=== PATIENT | female | born 1945 | race Caucasian/White ===

== ENCOUNTER 2018-08-25 19:50 | Inpatient (IN) ==
[2018-08-25 20:38] LABS: Basophils % 0.5 %; Eosinophils # 0.2 K/mcL (0.0-0.6); Eosinophils % 3.5 %; Hematocrit 40.3 % (35.3-44.9); Hemoglobin 12.8 g/dL (11.5-15.4); Immature Granulocytes % 0.3 % (0-4); Lymphocytes # 0.8 K/mcL (0.6-4.6); Lymphocytes % 14.6 %; Mean Corpuscular HGB Conc 31.8 g/dL (31.6-35.5); Mean Corpuscular Hemoglobin 30.1 pg (28.0-33.3); Mean Corpuscular Volume 94.8 fL (83.0-100.0); Mean Platelet Volume 10.1 fL (9.4-12.4); Monocytes # 0.5 K/mcL (0.0-1.3); Monocytes % 8.2 %; Neutrophils # 4.2 K/mcL (1.6-8.9); Platelet Count 195 K/mcL (140-400); Red Blood Count 4.25 M/mcL (3.82-4.97); Red Cell Distribution Width 13.9 % (11.5-14.5); Segmented Neutrophils % 72.9 %; White Blood Count 5.8 K/mcL (4.3-11.1)
--- NOTE | 2018-08-25 20:46 | Emergency Department Note ---
Disposition Clinical Impression: Orthopnea Acute CHF Qualifiers: Heart failure type: unspecified Qualified Code(s): I50.9 - Heart failure, unspecified Dyspnea Qualifiers: Dyspnea type: unspecified Qualified Code(s): R06.00 - Dyspnea, unspecified Disposition: Admitted As Inpatient Condition: Fair Time of Disposition: 22:54 General Adult HPI - General Chief complaint: ED Shortness of Breath/Dyspnea Stated complaint: Luiz Time Seen by Provider: 08/25/18 20:27 Source: patient, family Limitations: no limitations Nursing Notes Reviewed: Yes Vital Signs Reviewed: Yes - History of Present Illness HPI Narrative: Patient is a 72-year-old female with past medical history including breast cancer, history of DVT, hypertension, hyperlipidemia present with chief c omplaint of shortness of breath worsening in the past 3 days. The patient states she has been having intermittent shortness of breath for the past 3 months. She has had frequent diagnoses of bronchitis. Most recently, she was diagnosed with bronchitis a week ago and started on Levaquin for 10 days. She was also started on a steroid taper. She is still taking both medications at this time. She states shortness of breath is progressively worsening in the past 3 days. Daughter notes that she has a difficult time ambulating from the bed to the door without getting short of breath. She has to stop to get her breath. She also complains of difficulty breathing when laying flat. She denies a diagnosis of congestive heart failure however takes Lasix intermittently for bilateral lower extremity swelling. She states her legs have been swollen significantly for the past 2 days. She took 80 mg of by mouth Lasix yesterday. She denies new cough, chills, fevers, chest pain, abdominal pain, nausea or vomiting, diarrhea, dysuria. Pain Scale: 0 - Related Data Home Medications Medication Instructions Recorded Confirmed Amitriptyline [Elavil] 25 mg PO DAILY 01/23/15 11/13/16 Cholecalciferol (Vitamin D3) 1,000 unit PO DAILY 01/23/15 11/13/16 [Vitamin D] Folic Acid 1 mg PO DAILY 01/23/15 11/13/16 Hydrochlorothiazide 25 mg PO DAILY 01/23/15 11/13/16 Levothyroxine [Synthroid] 112 mcg PO 0630 01/23/15 11/13/16 Lisinopril [Zestril] 40 mg PO DAILY 01/23/15 11/13/16 Metoprolol [Lopressor] 50 mg PO BID 01/23/15 11/13/16 Oxycodone HCl/Acetaminophen 1 tab PO Q6H PRN 01/23/15 11/13/16 [Percocet 10-325 mg Tablet] Pravastatin Sodium [Pravachol] 20 mg PO DAILY 01/23/15 11/13/16 TraZODone 50 mg PO HS 01/23/15 11/13/16 Previous Rx's Medication Instructions Recorded Anastrozole [Arimidex] 1 mg PO DAILY #30 tablet 01/23/15 Omeprazole [PriLOSEC] 20 mg PO DAILY #30 cap 08/20/16 Allergies Allergy/AdvReac Type Severity Reaction Status Date / Time venlafaxine [From Effexor] Allergy Flushing Verified 11/13/16 11:46 adhesive tape AdvReac Rash Verified 11/13/16 11:46 All systems ED: reviewed and negative except as stated. Review of Systems: As Per HPI Constitutional: Denies: fever, chills Cardiovascular: Denies: chest pain, palpitations Respiratory: Reports: cough, dyspnea Gastrointestinal: Denies: abdominal pain, nausea, vomiting, diarrhea Genitourinary: Denies: dysuria Musculoskeletal: Denies: back pain, neck pain Neurological: Denies: headache, weakness Past Medical History - Past Medical History Attestation: Yes The following information was validated with the patient. Source: patient Medical history: Reports: hyperlipidemia, hypertension - Social History Smoking Status: Current every day smoker Smokeless Tobacco Status: No Alcohol use: Reports: occasionally Drug use: Reports: none Physical Exam - General Limitations: no limitations General appearance: alert - Head Head exam: atraumatic, normocephalic, normal inspection - Eye Eye exam: Present: normal appearance, EOMI - ENT ENT exam: normal exam, mucous membranes moist - Neck Neck exam: Present: normal inspection, trachea midline - Chest Chest inspection: Present: normal inspection, symmetric chest wall rise - Respiratory Respiratory exam: Present: other (Diminished breath sounds bilaterally without wheezing or crackles.) - Cardiovascular Cardiovascular exam: Present: regular rate, normal rhythm - Abdominal Exam Abdominal exam: Present: soft, Non-Tender. Absent: distention, guarding, rebound, rigidity - Extremities Exam Extremities exam: Present: normal capillary refill, other (2+ pitting edema bilateral lower extremities. RUE swelling) - Neurological Exam Neurological exam: Present: alert, oriented X3 - Psychiatric Psychiatric exam: Present: normal affect, normal mood - Skin Skin exam: Present: warm, dry. Absent: diaphoresis, pallor Course Vital Signs Temperature 97.5 F L 08/25/18 19:52 Pulse Rate 73 08/25/18 19:52 Respiratory Rate 18 08/25/18 19:52 Blood Pressure 134/80 08/25/18 19:52 O2 Sat by Pulse Oximetry 98 08/25/18 19:52 Temperature 97.5 F L 08/25/18 19:52 Pulse Rate 73 08/25/18 19:52 Respiratory Rate 18 08/25/18 19:52 Blood Pressure 134/80 08/25/18 19:52 O2 Sat by Pulse Oximetry 98 08/25/18 19:52 Oxygen Delivery Oxygen Delivery Room Air Medical Decision Making - MDM Narrative Medical decision making narrative: Patient has signs and symptoms concerning for congestive heart failure. She clinically appears fluid overloaded. She took 80 mg of IV Lasix yesterday. Patient denies a diagnosis of congestive heart failure. We will obtain CBC, B MP, troponin, BNP. EKG does show a new left bundle branch block which is new compared to old EKG in 2016. She had an echocardiogram in 2016 that showed mild left ventricular diastolic dysfunction and LVEF of 60%. 21:45 Chest x-ray shows improving pneumonia. She has a small pleural effusion and cardiomegaly. Troponin is normal. BNP is elevated 977 and none to compare to. We will give 40 mg IV Lasix. We will admit the patient for new EKG changes, acute congestive heart failure. Hospitalist paged. 22:[address] Laura who accepts patient. Added on a Doppler ultrasound of the right upper extremity as she has swelling and lymphedema from her prior breast cancer and surgery. These results are pending. - Medical Records Medical records reviewed: Yes I reviewed the patient's medical records. - Lab Data Lab results reviewed: Yes I reviewed the patient's lab results. Result diagrams: 08/25/18 20:26 08/25/18 20:26 Lab Results 08/25/18 08/25/18 08/25/18 Range/Units 20:26 20:26 20:26 WBC 5.8 (4.3-11.1) K/mcL RBC 4.25 (3.82-4.97) M/mcL Hgb 12.8 (11.5-15.4) g/dL Hct 40.3 (35.3-44.9) % MCV 94.8 (83.0-100.0) fL MCH 30.1 (28.0-33.3) pg MCHC 31.8 (31.6-35.5) g/dL RDW 13.9 (11.5-14.5) % Plt Count 195 (140-400) K/mcL MPV 10.1 (9.4-12.4) fL Immature Gran % 0.3 (0-4) % Seg Neutrophils % 72.9 % Lymphocytes % 14.6 % Monocytes % 8.2 % Eosinophils % 3.5 % Basophils % 0.5 % Neutrophils # 4.2 (1.6-8.9) K/mcL Lymphocytes # 0.8 (0.6-4.6) K/mcL Monocytes # 0.5 (0.0-1.3) K/mcL Eosinophils # 0.2 (0.0-0.6) K/mcL Basophils # 0.0 (0.0-0.2) K/mcL Sodium 138 (136-145) mEq/L Potassium 4.1 (3.5-5.1) mEq/L Chloride 99 (98-107) mEq/L Carbon Dioxide 30 H (23-29) mEq/L BUN 15 (8-23) mg/dL Creatinine 0.74 (0.60-1.20) mg/dL Est GFR ( Amer) > 60 (> 60) Est GFR (Non-Af Amer) > 60 (> 60) BUN/Creatinine Ratio 20 (6-26) Glucose 85 (70-105) mg/dL Calculated Osmolality 286 (280-300) Lactic Acid 1.0 (0.5-2.2) mmol/L Calcium 9.0 (8.6-10.3) mg/dL Troponin I < 0.03 (< 0.04) ng/mL B-Natriuretic Peptide (Less than 100) pg/mL 08/25/18 Range/Units 20:26 WBC (4.3-11.1) K/mcL RBC (3.82-4.97) M/mcL Hgb (11.5-15.4) g/dL Hct (35.3-44.9) % MCV (83.0-100.0) fL MCH (28.0-33.3) pg MCHC (31.6-35.5) g/dL RDW (11.5-14.5) % Plt Count (140-400) K/mcL MPV (9.4-12.4) fL Immature Gran % (0-4) % Seg Neutrophils % % Lymphocytes % % Monocytes % % Eosinophils % % Basophils % % Neutrophils # (1.6-8.9) K/mcL Lymphocytes # (0.6-4.6) K/mcL Monocytes # (0.0-1.3) K/mcL Eosinophils # (0.0-0.6) K/mcL Basophils # (0.0-0.2) K/mcL Sodium (136-145) mEq/L Potassium (3.5-5.1) mEq/L Chloride (98-107) mEq/L Carbon Dioxide (23-29) mEq/L BUN (8-23) mg/dL Creatinine (0.60-1.20) mg/dL Est GFR ( Amer) (> 60) Est GFR (Non-Af Amer) (> 60) BUN/Creatinine Ratio (6-26) Glucose (70-105) mg/dL Calculated Osmolality (280-300) Lactic Acid (0.5-2.2) mmol/L Calcium (8.6-10.3) mg/dL Troponin I (< 0.04) ng/mL B-Natriuretic Peptide 977 H (Less than 100) pg/mL - Radiology Data Chest X-Ray 08/25/18 19:56 IMPRESSION: 1. Stable chronic cardiomegaly and a small right pleural effusion. 2. Slight interval improved appearance of right perihilar opacity, likely improving pneumonia. 3. Stable right basilar airspace disease, likely passive atelectasis, though underlying pneumonia or aspiration are not excluded. D/ / 08/25/2018 20:35:50 Zaid Love MD / bcarter Interpreting Provider: Zaid Love MD - EKG Data EKG #1 EKG attestation: Yes I reviewed and interpreted this EKG. EKG results narrative: EKG shows sinus rhythm with occasional PVCs. There is a left bundle branch block without Hola's criteria. No ST elevation or depression. Compared to old EKG on 07/04/2015. Left bundle branch block is new. Attestation Statement - Attestation Attestation: I have seen this patient with the resident physician, I have personally evaluated this patient. I had reviewed the chart and document dictation by the resident physician and aM in agreement with the information documented by the resident physician. Please see documentation by the resident physician for co mplete chart including past medical history, family medical history, review of systems, current history and physical and laboratory and imaging studies. I was present for all procedures, provided direct supervision for all procedures, was present for the entirety of all procedures and provided direct guidance during the procedures. Please see documentation by the resident physician for any procedures performed. I have reviewed all interpretations of EKGs, and reviewed all EKGs performed on patient's as well. I have also reviewed reports of imaging as provided by radiology. Patient presented emergency room with a couple months of progressively increasing shortness of breath increasing orthopnea increasing peripheral edema. She has been treated for bronchitis 4 times as an outpatient because she has been wheezing. She states she is however worsening over last couple of weeks. No history of CHF. Patient does describe orthopnea states she cannot lay flat even during the day. She has a history of prior breast cancer, she has a history of lymphedema of the right upper extremity which she states is no different but has bilateral lower extremity edema. Patient has profound lymphedema right upper extremity the rest of her physical examination is consistent for some wheezes and a few crackles at the bases. There is 1+ bilateral lower extremity pitting edema to the knee. There is positive JVD. Heart reveals no murmur rub or gallop. 1+ bilateral lower extremity edema positive JVD. Abdomen is soft and nontender. Chest x-ray showed bilateral lower lobe pleural effusions with some potential interstitial infiltrate and some cardiomegaly. CBC basic metabolic profile cardiac enzymes within acceptable limits. BNP significantly elevated. Patient given IV Lasix. Ultrasound of the right upper extremity revealed no DVT within the lymphedema. Patient given IV Lasix as above. Patient has no history of CHF symptoms highly consistent with CHF with peripheral edema orthopnea JVD pleural effusions and elevated BNP she will be admitted for further evaluation of new onset of CHF.
[2018-08-25 20:59] LABS: BUN/Creatinine Ratio 20 (6-26); Blood Urea Nitrogen 15 mg/dL (8-23); Carbon Dioxide 30 mEq/L (23-29); Chloride 99 mEq/L (98-107); Glucose 85 mg/dL (70-105); Osmolality,Calculated 286 (280-300); Potassium 4.1 mEq/L (3.5-5.1); Sodium 138 mEq/L (136-145); Troponin I < 0.03 ng/mL (< 0.04); eGFR For African Americans > 60 (> 60); eGFR For Non-African Americans > 60 (> 60)
[2018-08-25] MEDS ORDERED: Furosemide 40 MG/4 ML VIAL IVP ONE (21:48)
[2018-08-26] MEDS ORDERED: Naloxone 0.4 MG/ML INJ IVP PRN (03:03)
[2018-08-26] MEDS ORDERED: Ondansetron 4 MG/2 ML VIAL IVP PRN (03:03)
[2018-08-26] MEDS ORDERED: Acetaminophen 325 MG TABLET PO PRN (03:03)
[2018-08-26] MEDS ORDERED: GuaiFENesin/Codeine Oral Soln 5 ML UDC PO PRN (03:09)
[2018-08-26 04:47] LABS: Basophils % 0.4 %; Eosinophils # 0.2 K/mcL (0.0-0.6); Eosinophils % 3.5 %; Immature Granulocytes % 0.4 % (0-4); Lymphocytes # 0.7 K/mcL (0.6-4.6); Mean Corpuscular HGB Conc 31.6 g/dL (31.6-35.5); Mean Corpuscular Hemoglobin 30.1 pg (28.0-33.3); Mean Corpuscular Volume 95.2 fL (83.0-100.0); Mean Platelet Volume 10.2 fL (9.4-12.4); Monocytes # 0.5 K/mcL (0.0-1.3); Monocytes % 9.2 %; Platelet Count 175 K/mcL (140-400); Red Blood Count 3.99 M/mcL (3.82-4.97); Red Cell Distribution Width 13.9 % (11.5-14.5); Segmented Neutrophils % 73.5 %; White Blood Count 5.5 K/mcL (4.3-11.1)
--- NOTE | 2018-08-26 04:49 | Internal Med History&Physical ---
Date of Encounter: 08/26/18 Time of Encounter: 02:30 Internal Medicine - H&P: HPI Chief complaint: SOB; cough; LE edema Admitted From: Emergency Dept Plans for Post Hospital Care: Home History of present illness: Ms. Mata is a 72 year old female who presents with a several week history of dyspnea, cough, fatigue, and lower extremity edema. She also developed orthopnea and paroxysmal nocturnal dyspnea over last few days. She has had subjective fevers, chills, and productive sputum production several days ago. S he has been on antibiotics for pneumonia which is slowly improving. Because of worsening dyspnea, orthopnea, and edema, she came to the ER tonight. In the ER, she was found to have evidence of CHF clinically. She was treated with Lasix and admitted to hospitalist service. Upon my assessment of the patient, she states she feels much better after Lasix. Her swelling of her lower extremities has gone down somewhat. Dyspnea has improved. She has no chest pain. Furthermore, she is able to lie almost flat. She denies any prior history of heart disease or heart failure. I reviewed her labs, x-rays, and EKG. Clinically, she does appear to have had CHF and has improved with initial treatment thus far. Past Med Surg Social Fam HX - Past Medical History Attestation: Yes The following information was validated with the patient. Source: patient, old records reviewed Medical history: cancer (breast), hyperlipidemia, hypertension Psychiatric history: no psych history - Past Surgical History Surgical History: breast surgery - Social History Smoking Status: Current every day smoker Smokeless Tobacco Status: No Alcohol use: occasionally Drug use: none Current living situation: Home Activity Level: Independent ambulation Recent Out of Country Travel Within the Last 8 Weeks: No - Family History Mother Hx Family Cancer: Yes (colon) Father Hx Family Cancer: Yes (multiple myleoma) Internal Medicine - H&P: Meds Anastrozole [Arimidex] 1 mg PO DAILY #30 tablet 01/23/15 [Rx] Cholecalciferol (Vitamin D3) [Vitamin D] 1,000 unit PO DAILY 01/23/15 [History] Hydrochlorothiazide 25 mg PO DAILY 01/23/15 [History] Levothyroxine [Synthroid] 112 mcg PO 0630 01/23/15 [History] Lisinopril [Zestril] 40 mg PO DAILY 01/23/15 [History] Metoprolol [Lopressor] 50 mg PO BID 01/23/15 [History] Oxycodone HCl/Acetaminophen [Percocet 10-325 mg Tablet] 1 tab PO Q6H PRN 01/23/15 [History] Pravastatin Sodium [Pravachol] 20 mg PO DAILY 01/23/15 [History] TraZODone 50 mg PO HS PRN 01/23/15 [History] Albuterol Sulfate [Proair Hfa] 2 puff IH Q4H PRN 08/25/18 [History] Aspirin [Lo-Dose Aspirin EC] 81 mg PO DAILY 08/25/18 [History] Bupropion HCl [Wellbutrin Xl] 300 mg PO DAILY 08/25/18 [History] Citalopram Hydrobromide [Citalopram HBr] 40 mg PO DAILY 08/25/18 [History] Folic Acid 2 tab PO DAILY 08/25/18 [History] Furosemide [Lasix] 20 mg PO DAILY 08/25/18 [History] Gabapentin [Neurontin] 100 mg PO BID 08/25/18 [History] GuaiFENesin/Codeine [ROBITUSSIN w/CODEINE] 5 ml PO Q6H PRN 08/25/18 [History] Levofloxacin [Levaquin] 500 mg PO DAILY 08/25/18 [History] Loperamide HCl [Anti-Diarrheal] 2 mg PO QID PRN 08/25/18 [History] Pantoprazole Sodium [Protonix] 40 mg PO DAILY 08/25/18 [History] predniSONE [PredniSONE] 10 mg PO DAILY 08/25/18 [History] Allergy/AdvReac Type Severity Reaction Status Date / Time venlafaxine [From Effexor] Allergy Flushing Verified 11/13/16 11:46 adhesive tape AdvReac Rash Verified 11/13/16 11:46 - Constitutional Constitutional: fatigue, fever(s), malaise, weakness, no chills, no night sweats - EENT Eyes: no blurry vision, no change in vision Ears: no ear pain, no tinnitus Nose, mouth and throat: nasal congestion, sinus pressure, no sore throat - Cardiovascular Cardiovascular ROS IM: dyspnea, dyspnea on exertion, edema, orthopnea, paroxysmal nocturnal dyspnea, no chest pain, no palpitations, no syncope - Respiratory Respiratory: cough, dyspnea, chest congestion, excessive phlegm production, no hemoptysis, no pain with cough - Gastrointestinal Gastrointestinal: no abdominal pain, no diarrhea, no hematemesis, no hematochezia, no melena, no nausea, no vomiting - Genitourinary Genitourinary: dysuria, no flank pain, no hematuria - Musculoskeletal Musculoskeletal ROS IM: no arthralgias, no back pain - Integumentary Integumentary IM: no rash, no jaundice - Neurological Neurological ROS: no disequilibrium, no dizziness, no focal weakness, no frequent falls - Psychiatric Psychiatric: no anxiety, no depression - Endocrine Endocrine IM: no polydipsia, no polyuria - Allergic/Immunologic Allergic/Immunologic: no GI upset with certain foods - Constitutional Vitals: Temp Pulse Resp BP Pulse Ox 97.8 F 85 16 122/76 99 08/26/18 03:52 08/26/18 03:52 08/26/18 03:52 08/26/18 03:52 08/26/18 03:52 General appearance: Present: cooperative, A&O X 3, pleasant, no acute distress, answers questions appropriately Exam: see below - Head Head exam: Present: atraumatic, normal inspection - Eye Eye exam: Present: EOMI, PERRL. Absent: scleral icterus Pupils: Present: normal accommodation - ENT ENT exam: Present: mucous membranes dry, normal exam, normal oropharynx - Neck Neck exam general surgery: Present: full ROM, supple, trachea midline. Absent: tenderness, nuchal rigidity, thyromegaly - Respiratory Respiratory exam: Present: decreased breath sounds, rales (both bases), respiratory distress (mild). Absent: chest wall tenderness, wheezes - Cardiovascular Cardiovascular exam: Present: RRR, +S1, +S2, systolic murmur. Absent: diastolic murmur - GI/Abdominal GI/Abdominal exam: Present: normal bowel sounds, soft. Absent: guarding, hepatomegaly, mass, rebound, splenomegaly, tenderness - Extremities Exam Extremities exam: Present: full ROM, normal capillary refill, pedal edema (BLE ~ 2+; 3-4+ RUE (lymphedema)). Absent: calf tenderness - Back Exam Back exam: Absent: CVA tenderness (L), CVA tenderness (R) - Neurological Exam Neurological exam: Present: alert, CN II-XII intact, oriented X3, no focal deficits, strengths equal and symetr throughout. Absent: motor sensory deficit - Psychiatric Psychiatric exam: Present: normal affect, normal mood - Skin Skin exam: Present: dry, intact, warm Internal Med - H&P Results - Labs CBC & Chem 7: 08/25/18 20:26 08/25/18 20:26 Labs: Short CBC 08/25/18 Range/Units 20:26 WBC 5.8 (4.3-11.1) K/mcL Hgb 12.8 (11.5-15.4) g/dL Hct 40.3 (35.3-44.9) % Plt Count 195 (140-400) K/mcL Neutrophils # 4.2 (1.6-8.9) K/mcL BMP 08/25/18 20:26 Sodium 138 Potassium 4.1 Chloride 99 Carbon Dioxide 30 H BUN 15 Creatinine 0.74 Glucose 85 Calcium 9.0 Cardiac Enzymes 08/25/18 Range/Units 20:26 Troponin I < 0.03 (< 0.04) ng/mL - Impressions ITS Impressions Chest X-Ray 08/25/18 19:56 IMPRESSION: 1. Stable chronic cardiomegaly and a small right pleural effusion. 2. Slight interval improved appearance of right perihilar opacity, likely improving pneumonia. 3. Stable right basilar airspace disease, likely passive atelectasis, though underlying pneumonia or aspiration are not excluded. D/ / 08/25/2018 20:35:50 Zaid Love MD / [email or web address] Interpreting Provider: Zaid Love MD - Diagnostic Studies Chest x-ray Status: image reviewed by me (resolving pneumonia and CHF findings) - Assessment and Plan (1) Acute CHF Current Visit: Yes Status: Acute Assessment and plan: 1. Patient responded nicely to diuresis. 2. Continue Lasix for 4 more doses then convert to oral dosing. 3. Fluid restriction. 4. Trend troponins and EKG's. 5. ECHO. 6. Consult cardiology given new onset CHF. Qualifiers: Heart failure type: unspecified Qualified Code(s): I50.9 - Heart failure, unspecified (2) Pneumonia Current Visit: Yes Status: Acute Assessment and plan: 1. Resolving. 2. Continue antibiotics as prescribed by PCP. 3. Oxygen and aerosols as needed. Qualifiers: Pneumonia type: due to unspecified organism Laterality: bilateral Lung location: lower lobe of lung Qualified Code(s): J18.1 - Lobar pneumonia, unspecified organism (3) Hypothyroidism Current Visit: Yes Status: Acute Assessment and plan: 1. Check TSH. 2. Continue home medicine and adjust per symptoms and TSH. Qualifiers: Hypothyroidism type: acquired Qualified Code(s): E03.9 - Hypothyroidism, unspecified (4) DVT prophylaxis Current Visit: Yes Status: Acute Assessment and plan: 1. Heparin SQ.
[2018-08-26 04:53] LABS: INR 1.3; Prothrombin Time 14.7 Seconds (9.4-12.1)
[2018-08-26 05:15] LABS: Alanine Aminotransferase 11 Units/L (7-52); Albumin 3.8 g/dL (3.5-5.7); Albumin/Globulin Ratio 1.7 (1.1-2.2); Alkaline Phosphatase 43 Units/L (34-104); Aspartate Amino Transferase 15 Units/L (13-39); BUN/Creatinine Ratio 19 (6-26); Bilirubin,Total 0.5 mg/dL (0.3-1.0); Blood Urea Nitrogen 18 mg/dL (8-23); Calcium 8.8 mg/dL (8.6-10.3); Carbon Dioxide 30 mEq/L (23-29); Chloride 99 mEq/L (98-107); Chol/HDL Ratio 2.3 (0-4.9); Cholesterol 172 mg/dL (< 200); Globulin 2.2 g/dL (2.4-3.5); Glucose 107 mg/dL (70-105); HDL Cholesterol 75 mg/dL (40-59); LDL Cholesterol,Calculated 87 mg/dL (0-99); Magnesium 1.8 mg/dL (1.6-2.6); Osmolality,Calculated 288 (280-300); Sodium 138 mEq/L (136-145); Triglycerides 50 mg/dL (< 150); eGFR For African Americans > 60 (> 60); eGFR For Non-African Americans 58 (> 60)
[2018-08-26] MEDS: *HR* Heparin 5,000 UNIT/ML VIAL SQ SCH ×3 (05:55→21:12)
[2018-08-26] MEDS: Aspirin Enteric Coated 81 MG Tablet PO SCH (07:49)
[2018-08-26] MEDS: Anastrozole 1 MG TABLET PO SCH (07:49)
[2018-08-26] MEDS: Folic Acid 1 MG TABLET PO SCH (07:49)
[2018-08-26] MEDS: Furosemide 40 MG/4 ML VIAL IVP SCH ×2 (07:50→16:44)
[2018-08-26] MEDS: levoFLOXacin 500 MG TABLET PO SCH (07:51)
[2018-08-26] MEDS: Gabapentin 100 MG CAPSULE PO SCH ×2 (07:52→20:03)
[2018-08-26] MEDS: Cholecalciferol (D-3) 1,000 UNIT TABLET PO SCH (07:53)
[2018-08-26] MEDS: Lisinopril 20 MG TABLET PO SCH (07:53)
[2018-08-26] MEDS: *HR* OxyCODONE/APAP 10/325 TABLET PO PRN ×3 (08:02→21:12)
[2018-08-26] MEDS ORDERED: predniSONE 10 MG TABLET PO SCH (09:00)
--- NOTE | 2018-08-26 10:07 | Cardiology Consult Note ---
Date of Encounter: 08/26/18 Time of Encounter: 10:04 Assessment and Plan (1) Acute CHF Current Visit: Yes Status: Acute Presents with dyspnea, cough, fatigue, and lower extremity edema. She also developed orthopnea and PND over last few days. BNP 977. CHF with right pleural effusion, PNA. Reports improvement in symptoms with IV Lasix. TTE to determine type of CHF (systolic vs diastolic). TTE in 2016 EF preserved. Agree with IV Lasix--40mg BID. Recommend strict I/Os, Na and fluid restriction, daily weights. Further recs pending TTE results. Qualifiers: Heart failure type: unspecified Qualified Code(s): I50.9 - Heart failure, unspecified (2) LBBB (left bundle branch block) Current Visit: Yes Status: Acute LBBB on ECG, new compared to 2016. Await TTE results for further recs. Denies chest pain. Discussion w patient/family: The assessment and plan as outlined above was discussed with the patient and/or family members who expressed understanding and agreement. All questions were answered. Thank you for involving us in the care of your patient. Please call with any questions. I will discuss all the above with Dr. Perez and make changes as necessary. History of Present Illness Consult date: 08/26/18 Consult reason: CHF Chief complaint: dyspnea History of present illness: Cousinleonides is a 72 year old female with PMH of HTN, HLD, breast cancer, who presents with a several week history of dyspnea, cough, fatigue, and lower extremity edema. She also developed orthopnea and paroxysmal nocturnal dyspnea over last few days. She has had subjective fevers, chills, and productive sputum production several days ago. She has been on antibiotics for pneumonia which is slowly improving. BNP 977. CHF with right pleural effusion, PNA. Cardiology consulted for further recs. Reports improvement in symptoms with IV Lasix. TTE 07/04/15: LVEF 60%. Normal left ventricular size and systolic function. There is evidence of mild diastolic dysfunction of the left ventricle. Mildly dilated with normal function. No significant valvular dysfunction. No significant TR gradient to estimate RVSP. IVC is not dilated. Past Med Surg Social Fam HX - Past Medical History Medical history: cancer (breast), hyperlipidemia, hypertension Psychiatric history: no psych history - Past Surgical History Surgical History: breast surgery - Social History Smoking Status: Current every day smoker Smokeless Tobacco Status: No Alcohol use: occasionally Drug use: none - Family History Mother Hx Family Cancer: Yes (colon) Father Hx Family Cancer: Yes (multiple myleoma) Medications and Allergies Anastrozole [Arimidex] 1 mg PO DAILY #30 tablet 01/23/15 [Rx] Cholecalciferol (Vitamin D3) [Vitamin D] 1,000 unit PO DAILY 01/23/15 [History] Hydrochlorothiazide 25 mg PO DAILY 01/23/15 [History] Levothyroxine [Synthroid] 112 mcg PO 0630 01/23/15 [History] Lisinopril [Zestril] 40 mg PO DAILY 01/23/15 [History] Metoprolol [Lopressor] 50 mg PO BID 01/23/15 [History] Oxycodone HCl/Acetaminophen [Percocet 10-325 mg Tablet] 1 tab PO Q6H PRN 01/23/15 [History] Pravastatin Sodium [Pravachol] 20 mg PO DAILY 01/23/15 [History] TraZODone 50 mg PO HS PRN 01/23/15 [History] Albuterol Sulfate [Proair Hfa] 2 puff IH Q4H PRN 08/25/18 [History] Aspirin [Lo-Dose Aspirin EC] 81 mg PO DAILY 08/25/18 [History] Bupropion HCl [Wellbutrin Xl] 300 mg PO DAILY 08/25/18 [History] Citalopram Hydrobromide [Citalopram HBr] 40 mg PO DAILY 08/25/18 [History] Folic Acid 2 tab PO DAILY 08/25/18 [History] Furosemide [Lasix] 20 mg PO DAILY 08/25/18 [History] Gabapentin [Neurontin] 100 mg PO BID 08/25/18 [History] GuaiFENesin/Codeine [ROBITUSSIN w/CODEINE] 5 ml PO Q6H PRN 08/25/18 [History] Levofloxacin [Levaquin] 500 mg PO DAILY 08/25/18 [History] Loperamide HCl [Anti-Diarrheal] 2 mg PO QID PRN 08/25/18 [History] Pantoprazole Sodium [Protonix] 40 mg PO DAILY 08/25/18 [History] predniSONE [PredniSONE] 10 mg PO DAILY 08/25/18 [History] Allergy/AdvReac Type Severity Reaction Status Date / Time venlafaxine [From Effexor] Allergy Flushing Verified 11/13/16 11:46 adhesive tape AdvReac Rash Verified 11/13/16 11:46 All Systems Review: The remainder of the systems were reviewed and are negative - Constitutional Constitutional: fatigue - Cardiovascular Cardiovascular: as per HPI, dyspnea at rest, dyspnea on exertion, leg edema, orthopnea, paroxysmal nocturnal dyspnea - Respiratory Respiratory: cough, dyspnea Physical Examination Vital Signs, Last 4 Hours Temp Pulse Resp BP Pulse Ox 08/26/18 07:11 97.7 F 96 16 141/91 100 Vital Signs Temp Pulse Resp BP Pulse Ox 08/26/18 07:11 97.7 F 96 16 141/91 100 08/26/18 03:52 97.8 F 85 16 122/76 99 08/25/18 23:59 98.0 F 99 16 150/91 99 08/25/18 22:59 92 20 164/86 100 08/25/18 19:52 97.5 F L 73 18 134/80 98 Intake and Output 08/25/18 08/26/18 08/26/18 23:59 07:59 15:59 Intake Total 240 / 240 Balance 240 / 240 Intake: Oral 240 / 240 Other: Meal Breakfast Percent of Meal Consumed 60% Weight 88.3 kg 88.3 kg Patient Weight 08/26/18 23:59 Weight 88.3 kg General: Conversant, No Apparent Distress HEENT: Atraumatic, Normocephaly, Mucus Membranes Moist Neck: No JVD, Normal carotid pulses Cardiac: Reg Rate and Rhythm, Normal S1 and S2, No Murmur Lungs: Normal Breath Sounds, No Wheeze, Rales, Rhonchi Neuro: Alert and responsive, No focal deficits noted Abdomen: Soft, Non-Tender Skin: No rashes noted on visualized skin Musculoskeletal: No Chest Wall Tenderness Extremities: Other (RUE lymphedema. Mild BLE edema.) Results 08/26/18 03:53 08/26/18 03:53 Lab Results 08/25/18 08/25/18 08/25/18 20:26 20:26 20:26 WBC 5.8 Hgb 12.8 Hct 40.3 Plt Count 195 INR APTT Sodium 138 Potassium 4.1 Chloride 99 Carbon Dioxide 30 H BUN 15 Creatinine 0.74 Glucose 85 Calcium 9.0 Magnesium Total Bilirubin AST ALT Alkaline Phosphatase Troponin I < 0.03 B-Natriuretic Peptide 977 H TSH 08/26/18 08/26/18 08/26/18 03:53 03:53 03:53 WBC 5.5 Hgb 12.0 Hct 38.0 Plt Count 175 INR 1.3 APTT 29.0 Sodium Potassium Chloride Carbon Dioxide BUN Creatinine Glucose Calcium Magnesium Total Bilirubin AST ALT Alkaline Phosphatase Troponin I < 0.03 B-Natriuretic Peptide TSH 08/26/18 08/26/18 03:53 08:55 WBC Hgb Hct Plt Count INR APTT Sodium 138 Potassium 4.0 Chloride 99 Carbon Dioxide 30 H BUN 18 Creatinine 0.95 Glucose 107 H Calcium 8.8 Magnesium 1.8 Total Bilirubin 0.5 AST 15 ALT 11 Alkaline Phosphatase 43 Troponin I < 0.03 B-Natriuretic Peptide TSH 10.440 H Short CBC 08/26/18 08/25/18 Range/Units 03:53 20:26 WBC 5.5 5.8 (4.3-11.1) K/mcL Hgb 12.0 12.8 (11.5-15.4) g/dL Hct 38.0 40.3 (35.3-44.9) % Plt Count 175 195 (140-400) K/mcL Neutrophils # 4.0 4.2 (1.6-8.9) K/mcL BMP 08/26/18 08/25/18 Range/Units 03:53 20:26 Sodium 138 138 (136-145) mEq/L Potassium 4.0 4.1 (3.5-5.1) mEq/L Chloride 99 99 (98-107) mEq/L Carbon Dioxide 30 H 30 H (23-29) mEq/L BUN 18 15 (8-23) mg/dL Creatinine 0.95 0.74 (0.60-1.20) mg/dL Glucose 107 H 85 (70-105) mg/dL Calcium 8.8 9.0 (8.6-10.3) mg/dL Cardiac Enzymes 08/26/18 08/26/18 08/25/18 Range/Units 08:55 03:53 20:26 Troponin I < 0.03 < 0.03 < 0.03 (< 0.04) ng/mL Liver Function 08/26/18 Range/Units 03:53 Total Bilirubin 0.5 (0.3-1.0) mg/dL AST 15 (13-39) Units/L ALT 11 (7-52) Units/L Alkaline Phosphatase 43 (34-104) Units/L Albumin 3.8 (3.5-5.7) g/dL Impressions Chest X-Ray 08/25/18 19:56 IMPRESSION: 1. Stable chronic cardiomegaly and a small right pleural effusion. 2. Slight interval improvement in appearance of right perihilar opacity, likely improving pneumonia. 3. Stable right basilar airspace disease, likely passive atelectasis, though underlying pneumonia or aspiration are not excluded. D/ / 08/25/2018 20:35:50 Zaid Love MD / bcarter Interpreting Provider: Zaid Love MD Active Medications Acetaminophen (Tylenol) 650 mg PO Q6HR PRN PRN Reason: Mild Pain/Fever Stop: 02/25/19 03:04 Albuterol Sulfate (Proventil Inhaler) 2 puff IH Q4H PRN PRN Reason: Shortness Of Breath Stop: 02/25/19 03:10 Anastrozole (Arimidex) 1 mg PO DAILY JENNIE Stop: 02/25/19 09:01 Last Admin: 08/26/18 07:49 Dose: 1 mg Documented by: Aspirin (Aspirin Ec) 81 mg PO DAILY JENNIE Stop: 02/25/19 09:01 Last Admin: 08/26/18 07:49 Dose: 81 mg Documented by: Atorvastatin Calcium (Lipitor) 10 mg PO DAILY JENNIE Stop: 02/25/19 09:01 Last Admin: 08/26/18 07:51 Dose: 10 mg Documented by: Folic Acid (Folic Acid) 1.5 mg PO DAILY JENNIE Stop: 02/25/19 09:01 Last Admin: 08/26/18 07:49 Dose: 1.5 mg Documented by: Furosemide (Lasix) 40 mg IVP BIDDIURETIC JENNIE Stop: 08/27/18 17:01 Last Admin: 08/26/18 07:50 Dose: 40 mg Documented by: Gabapentin (Neurontin) 100 mg PO BID JENNIE Stop: 02/25/19 09:01 Last Admin: 08/26/18 07:52 Dose: 100 mg Documented by: Guaifenesin/Codeine Phosphate (Robitussin W/Codeine) 5 ml PO Q6H PRN; Protocol PRN Reason: Cough Stop: 02/25/19 03:10 Heparin Sodium (Porcine) (Heparin) 5,000 unit SQ Q8HCO [facility] Stop: 02/25/19 06:01 Last Admin: 08/26/18 05:55 Dose: 5,000 unit Documented by: Levofloxacin (Levaquin) 500 mg PO DAILY [facility]; Protocol Stop: 02/25/19 09:01 Last Admin: 08/26/18 07:51 Dose: 500 mg Documented by: Levothyroxine Sodium (Synthroid) 112 mcg PO 0630 [facility] Stop: 02/25/19 06:31 Last Admin: 08/26/18 05:50 Dose: 112 mcg Documented by: Lisinopril (Zestril) 40 mg PO DAILY [facility]; Protocol Stop: 02/25/19 09:01 Last Admin: 08/26/18 07:53 Dose: 40 mg Documented by: Metoprolol Tartrate (Lopressor) 50 mg PO BID [facility] Stop: 02/25/19 09:01 Last Admin: 08/26/18 07:52 Dose: 50 mg Documented by: Naloxone HCl (Narcan) 0.4 mg IVP Q2MPRN PRN PRN Reason: SEE COMMENTS Stop: 02/25/19 03:04 Omeprazole (Prilosec) 40 mg PO DAILY@0730 [facility] Stop: 02/25/19 07:31 Last Admin: 08/26/18 07:52 Dose: 40 mg Documented by: Ondansetron HCl (Zofran) 4 mg IVP Q8HR PRN PRN Reason: Nausea And Vomiting Stop: 02/25/19 03:04 Oxycodone/Acetaminophen (Percocet 10/325) 1 each PO Q6H PRN PRN Reason: Pain Stop: 02/25/19 03:10 Last Admin: 08/26/18 08:02 Dose: 1 each Documented by: Prednisone (Prednisone) 20 mg PO DAILY [facility]; Taper Stop: 09/03/18 08:59 Last Admin: 08/26/18 07:52 Dose: 20 mg Documented by: Vitamin D (Vitamin D) 1,000 unit PO DAILY [facility] Stop: 02/25/19 09:01 Last Admin: 08/26/18 07:53 Dose: 1,000 unit Documented by: - EKG Interpretation EKG results cardiology: personally reviewed (LBBB), other (12 hr tele AVG HR 82, SR) Consult Discharge Plan - Plan Referrals: dE Castrejon MD [Primary Care Provider] - 09/07/18 1:15 pm
--- NOTE | 2018-08-26 12:57 | Electrocardiograph Report ---
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
--- NOTE | 2018-08-26 13:01 | Electrocardiograph Report ---
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
[2018-08-26] MEDS ORDERED: Ipratropium/Albuterol Neb 3 ML IH PRN (13:23)
--- NOTE | 2018-08-26 13:25 | Internal Med Progress Note ---
Hospitalist Progress Note - Encounter Date of Encounter: 08/26/18 Time of Encounter: 10:30 - Subjective Interval History: Ms. Mata is a 72 year old female with a known past the history of chronic tobacco dependence, COPD, hypertension, morbid obesity, chronic right upper extremity lymphedema, hypothyroidism and chronic diastolic CHF pt presented to [facility] with a several week history of dyspnea, cough, fatigue, and lower extremity edema. She also developed orthopnea and paroxysmal nocturnal dyspnea over last few days. She has had subjective fevers, chills, and productive sputum production several days ago. She was admitted in the hospital and placed on library monitor. She does have acute CHF exacerbation so started her on IV Lasix. Her symptoms are concerning for acute purulent bronchitis with moderate COPD exacerbation. Patient was started on empirical antibiotic levofloxacin and systemic steroids. Patient stated she is feeling little better now. Still having moderate shortness of breath and dyspnea on exertion - Exam Vitals: Temp Pulse Resp BP Pulse Ox 97.7 F 114 18 115/74 99 08/26/18 10:36 08/26/18 10:36 08/26/18 10:36 08/26/18 10:36 08/26/18 10:36 Exam: Gen: Alert, awake, Oriented to time,place and person Chest: Diminished breath sounds B/L, moderate wheezing, No crackles, No rales Heart: S1S2+ RRR No murmurs Abd: Soft, NT, BS +, No organomegaly Ext: 2+ edema in both LE, chronic RUE lymphedema, pulses are palpable, No calf tenderness Neuro : No acute focal neuro deficits noticed Skin: No rash. - Assessment and Plan (1) Acute CHF Current Visit: Yes Status: Acute Assessment and Plan: Reviewed Echo showed - LVEF 25%, Severe global LV systolic dysfunction Cont IV Lasix Cont ASA, metoprolol, ACEI and statin Card consulted for new onset systolic CHF scheduled for [facility] In AM Patient does need to stay in the hospital more than 2 midnights due to her complex medical problems. So we will change her to full admission today. I did review my colleague Dr. Laura's H & P including HPI, PMH, PSH, FH, SH, and ROS no changes noticed (2) Acute and chronic respiratory failure with hypoxia Current Visit: Yes Status: Acute Assessment and Plan: as above (3) Pneumonia Current Visit: Yes Status: Acute Assessment and Plan: Resolving. Continue antibiotics as prescribed by PCP. Oxygen and aerosols as needed. (4) COPD exacerbation Current Visit: Yes Status: Acute Assessment and Plan: on systemic steroids cont duoneb on 3 lit O2 now.. her baseline is 2 lit o2 at home cont empirical abx (5) Hypothyroidism Current Visit: Yes Status: Acute Assessment and Plan: Her TSH slightly elevated Will inc her home dose levothyroxine to 125 mcg (6) DVT prophylaxis Current Visit: Yes Status: Acute Assessment and Plan: on Heparin SQ. (7) Tobacco dependence Current Visit: Yes Status: Acute - Time Spent with Patient Total time spent is greater than 50% in coordination of care (as documented) at patient's floor/unit and/or counseling patient: Internal Medicine: Result - Labs CBC & Chem 7: 08/26/18 03:53 08/26/18 03:53 Labs: Short CBC 08/25/18 08/26/18 Range/Units 20:26 03:53 WBC 5.8 5.5 (4.3-11.1) K/mcL Hgb 12.8 12.0 (11.5-15.4) g/dL Hct 40.3 38.0 (35.3-44.9) % Plt Count 195 175 (140-400) K/mcL Neutrophils # 4.2 4.0 (1.6-8.9) K/mcL BMP 08/25/18 08/26/18 20:26 03:53 Sodium 138 138 Potassium 4.1 4.0 Chloride 99 99 Carbon Dioxide 30 H 30 H BUN 15 18 Creatinine 0.74 0.95 Glucose 85 107 H Calcium 9.0 8.8 Cardiac Enzymes 08/25/18 08/26/18 08/26/18 Range/Units 20:26 03:53 08:55 Troponin I < 0.03 < 0.03 < 0.03 (< 0.04) ng/mL Liver Function 08/26/18 Range/Units 03:53 Total Bilirubin 0.5 (0.3-1.0) mg/dL AST 15 (13-39) Units/L ALT 11 (7-52) Units/L Alkaline Phosphatase 43 (34-104) Units/L Albumin 3.8 (3.5-5.7) g/dL - ABG Interpretation ABG results: PT/INR, D-dimer PT 14.7 Seconds (9.4-12.1) H 08/26/18 03:53 - Impressions Impressions Chest X-Ray 08/25/18 19:56 IMPRESSION: 1. Stable chronic cardiomegaly and a small right pleural effusion. 2. Slight interval improvement in appearance of right perihilar opacity, likely improving pneumonia. 3. Stable right basilar airspace disease, likely passive atelectasis, though underlying pneumonia or aspiration are not excluded. D/ / 08/25/2018 20:35:50 Zaid Love MD / bcarter Interpreting Provider: Zaid Love MD Echocardiogram 08/26/18 03:03 Impressions: LVEF 25%. Severe global LV systolic dysfunction. Mild left ventricular diastolic dysfunction. Atypical septal motion consistent with bundle branch block. Normal right ventricular structure with low normal systolic function. Mild-moderate mitral regurgitation. Mild tricuspid regurgitation. Mild pulmonary hypertension by TR gradient. When compared to prior echo, 07/04/2015, LV systolic function is now reduced. Left Ventricular Wall Motion: Rest Echo Findings The apex, apical inferior, mid inferior, basal inferior, apical anterior, mid anterior, basal anterior, apical septal, mid inferior septal, basal inferior septal, apical lateral, mid anterior lateral, basal anterior lateral, mid anterior septal, mid inferior lateral, basal anterior septal and basal inferior lateral george were hypokinetic. Findings: Study Quality * Technically adequate exam. ECG Findings * Normal sinus rhythm with ventricular ectopy. Left Ventricle * LVEF 25%. * LV chamber size is normal. * Mild left ventricular diastolic dysfunction. * Atypical septal motion consistent with bundle branch block. Right Ventricle * Normal right ventricular structure with low normal systolic function. Left Atrium * Mildly dilated left atrium. Right Atrium * Normal right atrial size. Mitral Valve * Mildly thickened mitral valve leaflets. * No mitral stenosis. * Mild-moderate mitral regurgitation. Aortic Valve * Aortic valve not well visualized. * No aortic stenosis. * Trace aortic regurgitation. Tricuspid Valve * Normal tricuspid valve structure. * Mild tricuspid regurgitation. Pulmonary Artery * Pulmonary artery not well visualized. Pulmonic Valve * Pulmonic valve is not well visualized. * No pulmonic stenosis. * No pulmonic regurgitation. Aorta * Normally sized aortic root. Pericardium * There is no pericardial effusion present. Interatrial Septum * Interatrial septum not well evaluated. IVC * The IVC is not well evaluated. Consult Discharge Plan - Plan Referrals: Ed Castrejon MD [Primary Care Provider] - 09/07/18 1:15 pm (1) Acute CHF Qualifiers: Heart failure type: unspecified Qualified Code(s): I50.9 - Heart failure, unspecified (3) Pneumonia Qualifiers: Pneumonia type: due to unspecified organism Laterality: bilateral Lung location: lower lobe of lung Qualified Code(s): J18.1 - Lobar pneumonia, unspecified organism (5) Hypothyroidism Qualifiers: Hypothyroidism type: acquired Qualified Code(s): E03.9 - Hypothyroidism, unspecified
[2018-08-26] MEDS: MethylPREDNISolone 40 MG/ML VIAL IVP SCH (16:46)
[2018-08-27] MEDS: *HR* OxyCODONE/APAP 10/325 TABLET PO PRN ×3 (04:35→17:29)
[2018-08-27] MEDS: MethylPREDNISolone 40 MG/ML VIAL IVP SCH (05:26)
[2018-08-27] MEDS: *HR* Heparin 5,000 UNIT/ML VIAL SQ SCH ×3 (05:26→21:03)
[2018-08-27 07:20] LABS: BUN/Creatinine Ratio 25 (6-26); Blood Urea Nitrogen 23 mg/dL (8-23); Calcium 9.3 mg/dL (8.6-10.3); Carbon Dioxide 32 mEq/L (23-29); Chloride 96 mEq/L (98-107); Glucose 131 mg/dL (70-105); Magnesium 1.9 mg/dL (1.6-2.6); Osmolality,Calculated 291 (280-300); Sodium 138 mEq/L (136-145); eGFR For African Americans > 60 (> 60); eGFR For Non-African Americans 60 (> 60)
[2018-08-27] MEDS: Folic Acid 1 MG TABLET PO SCH (07:47)
[2018-08-27] MEDS: Lisinopril 20 MG TABLET PO SCH (07:47)
[2018-08-27] MEDS: levoFLOXacin 500 MG TABLET PO SCH (07:47)
[2018-08-27] MEDS: Cholecalciferol (D-3) 1,000 UNIT TABLET PO SCH (07:47)
[2018-08-27] MEDS: Furosemide 40 MG/4 ML VIAL IVP SCH (07:47)
[2018-08-27] MEDS: Gabapentin 100 MG CAPSULE PO SCH ×2 (07:47→21:03)
[2018-08-27] MEDS: Aspirin Enteric Coated 81 MG Tablet PO SCH (07:48)
[2018-08-27] MEDS: Anastrozole 1 MG TABLET PO SCH (07:48)
--- NOTE | 2018-08-27 08:47 | Event Note ---
Date of Encounter: 08/27/18 Time of Encounter: 08:47 - Cardiology Event Note Plan for [facility] tomorrow, 08/28 for CMP EF 25%. ECG with new LBBB. R/B/A discussed. Pt agrees to proceed. NPO after midnight.
--- NOTE | 2018-08-27 12:32 | Internal Med Progress Note ---
Hospitalist Progress Note - Encounter Date of Encounter: 08/27/18 Time of Encounter: 10:00 - Subjective Interval History: Ms. Mata is a 72 year old female with a known past the history of chronic tobacco dependence, COPD, hypertension, morbid obesity, chronic right upper extremity lymphedema, hypothyroidism and chronic diastolic CHF pt presented to E [facility] with a several week history of dyspnea, cough, fatigue, and lower extremity edema. She also developed orthopnea and paroxysmal nocturnal dyspnea over last few days. She has had subjective fevers, chills, and productive sputum production several days ago. She was admitted in the hospital and placed on monitoring and evaluation advisor. She does have acute CHF exacerbation so started her on IV Lasix. Her symptoms are concerning for acute purulent bronchitis with moderate COPD exacerbation. Patient was started on empirical antibiotic levofloxacin and systemic steroids. Patient stated she is feeling better today. Still having moderate shortness of breath and dyspnea on exertion. No events over night - Exam Vitals: Temp Pulse Resp BP Pulse Ox 98.2 F 49 16 114/71 95 08/27/18 11:32 08/27/18 11:32 08/27/18 11:32 08/27/18 11:32 08/27/18 11:32 Exam: Gen: Alert, awake, Oriented to time,place and person Chest: Diminished breath sounds B/L, moderate wheezing, No crackles, No rales Heart: S1S2+ RRR No murmurs Abd: Soft, NT, BS +, No organomegaly Ext: 1+ edema in both LE, chronic RUE lymphedema, pulses are palpable, No calf tenderness Neuro : No acute focal neuro deficits noticed Skin: No rash. - Assessment and Plan (1) Acute CHF Current Visit: Yes Status: Acute Assessment and Plan: Reviewed Echo showed - LVEF 25%, Severe global LV systolic dysfunction She does have acute systolic CHF exacerbation Cont IV Lasix - changed the dose to 20mg BID Cont ASA, metoprolol, ACEI and statin Card consulted for new onset systolic CHF scheduled for [facility] In AM (2) Acute and chronic respiratory failure with hypoxia Current Visit: Yes Status: Acute Assessment and Plan: She does have Oxygen at home to use at 2lit with ambulation and night, however pt do not using it (3) Pneumonia Current Visit: Yes Status: Acute Assessment and Plan: Resolving. Continue antibiotics as prescribed by PCP. Oxygen and aerosols as needed. (4) COPD exacerbation Current Visit: Yes Status: Acute Assessment and Plan: on systemic steroids cont duoneb on 2 lit O2 now.. her baseline is 2 lit o2 at home as needed cont empirical abx (5) Hypothyroidism Current Visit: Yes Status: Acute Assessment and Plan: Her TSH slightly elevated inc her home dose levothyroxine to 125 mcg (6) DVT prophylaxis Current Visit: Yes Status: Acute Assessment and Plan: on Heparin SQ. (7) Tobacco dependence Current Visit: Yes Status: Acute Assessment and Plan: Counseled to quit smoking placed on nicotine patch - Time Spent with Patient Total time spent is greater than 50% in coordination of care (as documented) at patient's floor/unit and/or counseling patient: Internal Medicine: Result - Labs CBC & Chem 7: 08/26/18 03:53 08/27/18 06:17 Labs: BMP 08/27/18 06:17 Sodium 138 Potassium 4.0 Chloride 96 L Carbon Dioxide 32 H BUN 23 Creatinine 0.92 Glucose 131 H Calcium 9.3 Cardiac Enzymes 08/26/18 Range/Units 15:55 Troponin I < 0.03 (< 0.04) ng/mL - ABG Interpretation ABG results: PT/INR, D-dimer PT 14.7 Seconds (9.4-12.1) H 08/26/18 03:53 Consult Discharge Plan - Plan Referrals: Ed Castrejon MD [Primary Care Provider] - 09/07/18 1:15 pm (1) Acute CHF Qualifiers: Heart failure type: systolic Qualified Code(s): I50.21 - Acute systolic (congestive) heart failure (3) Pneumonia Qualifiers: Pneumonia type: due to unspecified organism Laterality: bilateral Lung location: lower lobe of lung Qualified Code(s): J18.1 - Lobar pneumonia, unspecified organism (5) Hypothyroidism Qualifiers: Hypothyroidism type: acquired Qualified Code(s): E03.9 - Hypothyroidism, unspecified
[2018-08-27] MEDS: Furosemide 20 MG/2 ML VIAL IVP SCH (17:29)
[2018-08-28] MEDS: *HR* OxyCODONE/APAP 10/325 TABLET PO PRN ×4 (00:38→23:03)
[2018-08-28] MEDS: *HR* Heparin 5,000 UNIT/ML VIAL SQ SCH ×3 (05:19→21:37)
[2018-08-28] MEDS: Cholecalciferol (D-3) 1,000 UNIT TABLET PO SCH (08:16)
[2018-08-28] MEDS: MethylPREDNISolone 40 MG/ML VIAL IVP SCH (08:16)
[2018-08-28] MEDS: Anastrozole 1 MG TABLET PO SCH (08:16)
[2018-08-28] MEDS: Gabapentin 100 MG CAPSULE PO SCH ×2 (08:16→21:37)
[2018-08-28] MEDS: Furosemide 20 MG/2 ML VIAL IVP SCH (08:16)
[2018-08-28] MEDS: Aspirin Enteric Coated 81 MG Tablet PO SCH (08:16)
[2018-08-28] MEDS: levoFLOXacin 500 MG TABLET PO SCH (08:17)
[2018-08-28] MEDS: Lisinopril 20 MG TABLET PO SCH (08:17)
[2018-08-28] MEDS: Folic Acid 1 MG TABLET PO SCH (08:17)
[2018-08-28 08:54] LABS: Calcium 9.4 mg/dL (8.6-10.3); Potassium 4.3 mEq/L (3.5-5.1)
[2018-08-28] MEDS ORDERED: 0.9 % Sodium Chloride 1,000 ML ONE ×2 (10:04→10:05)
[2018-08-28] MEDS ORDERED: ISOVUE-370 200 ML INFUS..BTL ONE (10:04)
[2018-08-28] MEDS ORDERED: *HR* Heparin 10,000 UNIT/10 ML VIAL ONE (10:04)
[2018-08-28] MEDS ORDERED: Heparin 1,000 UNITS/500 mL 500 ML ONE (10:04)
[2018-08-28] MEDS ORDERED: Nitroglycerin 1,000 MCG/10 ML VIAL IV ONE (10:04)
--- NOTE | 2018-08-28 10:31 | Pre-Sedation Evaluation ---
Pre-sedation evaluation - Pre-sedation checklist Date of procedure: 08/28/18 Procedure: LEFT HEART CATH Recent Vitals: Last Vital Signs Temp 97.9 F 08/28/18 07:46 Pulse 62 08/28/18 07:46 Resp 16 08/28/18 07:46 BP 129/91 08/28/18 07:46 Pulse Ox 98 08/28/18 07:46 H&P (including ROS) documented in medical record: Yes Previous reaction to sedatives/anesthetics: No Dietary Status: NPO after Midnight Dentition: poor dentition ASA Classification *see protocol: CLASS II-Mild systemic disease Plan of Care: Risks/benefits of procedure/sedation discussed w/ patient/family Cardiac Registry (Cardio Only) - Functional Capacity Functional Capacity: >=4 METS with symptoms - Clincal Frailty Scale Clinical Frailty Scale: Vulnerable
[2018-08-28] MEDS ORDERED: Verapamil 5 MG/2 ML VIAL ONE (10:49)
[2018-08-28] MEDS ORDERED: *HR* Midazolam HCl 2 MG/2 ML VIAL ONE (10:49)
[2018-08-28] MEDS ORDERED: *HR* FentaNYL (PF) 100 MCG/2 ML VIAL ONE (10:49)
--- NOTE | 2018-08-28 12:11 | Event Note ---
Date of Encounter: 08/28/18 Time of Encounter: 12:08 - Cardiology Event Note C without intervention. Moderate LAD disease. 80-90% diag. Final report pending. EF on TTE 25%. Discussed with Dr. Haas. Lifevest at d/c. Continue BB and ACEi. Will switch BB to long acting. Transition to PO Lasix prior to d/c. Plan for repeat TTE in 3 months. If EF remains <35%, ICD evaluation. Cardiology signing off. Reconsult PRN. Will coordinate outpt follow-up in 2 weeks.
--- NOTE | 2018-08-28 12:40 | Internal Med Progress Note ---
Hospitalist Progress Note - Encounter Date of Encounter: 08/28/18 Time of Encounter: 10:00 - Subjective Interval History: Ms. Mata is a 72 year old female with a known past the history of chronic tobacco dependence, COPD, hypertension, morbid obesity, chronic right upper extremity lymphedema, hypothyroidism and chronic diastolic CHF pt presented to [facility] with a several week history of dyspnea, cough, fatigue, and lower extremity edema. She also developed orthopnea and paroxysmal nocturnal dyspnea over last few days. She has had subjective fevers, chills, and productive sputum production several days ago. She was admitted in the hospital and placed on quality assurance monitor. She does have acute CHF exacerbation so started her on IV Lasix. Her symptoms are concerning for acute purulent bronchitis with moderate COPD exacerbation. Patient was started on empirical antibiotic levofloxacin and systemic steroids. Patient stated she is feeling better today. Her shortness of breath and dyspnea on exertion also better today. No events over night - Exam Vitals: Temp Pulse Resp BP Pulse Ox 97.9 F 62 16 129/91 98 08/28/18 07:46 08/28/18 07:46 08/28/18 07:46 08/28/18 07:46 08/28/18 07:46 Exam: Gen: Alert, awake, Oriented to time,place and person Chest: Diminished breath sounds B/L, moderate wheezing, No crackles, No rales Heart: S1S2+ RRR No murmurs Abd: Soft, NT, BS +, No organomegaly Ext: Trace edema in both LE, chronic RUE lymphedema, pulses are palpable, No calf tenderness Neuro : No acute focal neuro deficits noticed Skin: No rash. - Assessment and Plan (1) Acute systolic (congestive) heart failure Current Visit: Yes Status: Acute Assessment and Plan: Reviewed Echo showed - LVEF 25%, Severe global LV systolic dysfunction She does have acute systolic CHF exacerbation Switched to PO Lasix 20mg BID Cont ASA, metoprolol, ACEI and statin Card consulted for new onset systolic CHF Had [facility] today - showed moderate LAD Card recommend Life vest placement Card / CM are working on arrange for Lifevest Possible d/c home later today or tomorrow after Lifevest placement (2) Acute and chronic respiratory failure with hypoxia Current Visit: Yes Status: Acute Assessment and Plan: She does have Oxygen at home to use at 2lit with ambulation and night, however pt do not using it (3) Pneumonia Current Visit: Yes Status: Acute Assessment and Plan: Resolving. Continue antibiotics as prescribed by PCP. Oxygen and aerosols as needed. (4) COPD exacerbation Current Visit: Yes Status: Acute Assessment and Plan: Improving switched to PO steroids cont duoneb on 2 lit O2 now.. her baseline is 2 lit o2 at home as needed cont empirical abx (5) Hypothyroidism Current Visit: Yes Status: Acute Assessment and Plan: Her TSH slightly elevated inc her home dose levothyroxine to 125 mcg (6) DVT prophylaxis Current Visit: Yes Status: Acute Assessment and Plan: on Heparin SQ. (7) Tobacco dependence Current Visit: Yes Status: Acute Assessment and Plan: Counseled to quit smoking placed on nicotine patch - Time Spent with Patient Total time spent is greater than 50% in coordination of care (as documented) at patient's floor/unit and/or counseling patient: Internal Medicine: Result - Labs CBC & Chem 7: 08/26/18 03:53 08/28/18 06:04 Labs: BMP 08/28/18 06:04 Sodium 141 Potassium 4.3 Chloride 99 Carbon Dioxide 34 H BUN 32 H Creatinine 1.11 Glucose 92 Calcium 9.4 - ABG Interpretation ABG results: PT/INR, D-dimer PT 14.7 Seconds (9.4-12.1) H 08/26/18 03:53 Consult Discharge Plan - Plan Referrals: Ed Castrejon MD [Primary Care Provider] - 09/07/18 1:15 pm (3) Pneumonia Qualifiers: Pneumonia type: due to unspecified organism Laterality: bilateral Lung location: lower lobe of lung Qualified Code(s): J18.1 - Lobar pneumonia, unspecified organism (5) Hypothyroidism Qualifiers: Hypothyroidism type: acquired Qualified Code(s): E03.9 - Hypothyroidism, unspecified
--- NOTE | 2018-08-28 16:23 | Discharge Summary ---
- NOTES TO OUTPATIENT PROVIDER Notes to Outpatient Provider: f/u with PCP in one week. f/u with Cardiology in one week. Medications changed during this hospitalization: stop taking regular Metoprolol 50mg PO BID. stop taking HCTZ. New changes: Started on Metoprolol XL 100mg Daily. Lasix 40mg PO Daily Orders not resulted at time of discharge: Pending orders 08/27/18 08:47 CL Cardiac Catheterization [CL] Routine Date of Encounter: 08/28/18 Time of Encounter: 16:19 - Discharge Diagnosis (1) Acute systolic (congestive) heart failure Priority: Primary Status: Acute (2) Acute and chronic respiratory failure with hypoxia Priority: Primary Status: Acute (3) Pneumonia Priority: Secondary Status: Acute Qualifiers: Pneumonia type: due to unspecified organism Laterality: bilateral Lung location: lower lobe of lung Qualified Code(s): J18.1 - Lobar pneumonia, unspecified organism (4) COPD exacerbation Priority: Secondary Status: Acute (5) Hypothyroidism Priority: Secondary Status: Acute Qualifiers: Hypothyroidism type: acquired Qualified Code(s): E03.9 - Hypothyroidism, unspecified (6) DVT prophylaxis Priority: Secondary Status: Acute (7) Tobacco dependence Priority: Secondary Status: Acute Hospital course: Ms. Mata is a 72 year old female with a known past the history of chronic tobacco dependence, COPD, hypertension, morbid obesity, chronic right upper extremity lymphedema, hypothyroidism and chronic diastolic CHF pt presented to ER with a several week history of dyspnea, cough, fatigue, and lower extremity edema. She also developed orthopnea and paroxysmal nocturnal dyspnea over last few days. She has had subjective fevers, chills, and productive sputum production several days ago. 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 She does have acute CHF exacerbation so started her on IV Lasix. Her symptoms are concerning for acute purulent bronchitis with moderate COPD exacerbation. Patient was started on empirical antibiotic levofloxacin and systemic steroids. Her 2 D Echo showed LVEF 25%, Severe global LV systolic dysfunction. Patient was evaluated by racket stringer who did LHC today which showed moderate LAD. No interventions. Card recommended to place her on Life vest. Patient stated she is feeling better today. Her shortness of breath and dyspnea on exertion also better today. Will d/c her home with Life vest later today or tomorrow. - Time Spent with Patient Total time spent providing and/or coordinating discharge services: - Discharge Medications Prescriptions: New Furosemide [Lasix] 40 mg PO DAILY #30 tablet Nicotine Patch [Nicoderm] 14 mg TD DAILY #30 patch.td24 predniSONE [PredniSONE] 40 mg PO DAILY #10 tablet Metoprolol XL (24 HR) Succ [Toprol Xl] 100 mg PO DAILY #30 tab.er.24h Continued Anastrozole [Arimidex] 1 mg PO DAILY #30 tablet TraZODone 50 mg PO HS PRN PRN Reason: Insomnia Lisinopril [Zestril] 40 mg PO DAILY Levothyroxine [Synthroid] 112 mcg PO 0630 Cholecalciferol (Vitamin D3) [Vitamin D] 1,000 unit PO DAILY Oxycodone HCl/Acetaminophen [Percocet 10-325 mg Tablet] 1 tab PO Q6H PRN PRN Reason: Pain Pravastatin Sodium [Pravachol] 20 mg PO DAILY Pantoprazole Sodium [Protonix] 40 mg PO DAILY Albuterol Sulfate [Proair Hfa] 2 puff IH Q4H PRN PRN Reason: Shortness Of Breath Loperamide HCl [Anti-Diarrheal] 2 mg PO QID PRN PRN Reason: Diarrhea Gabapentin [Neurontin] 100 mg PO BID Folic Acid 1.6 mg PO DAILY Citalopram Hydrobromide [Citalopram HBr] 40 mg PO DAILY Aspirin [Lo-Dose Aspirin EC] 81 mg PO DAILY GuaiFENesin/Codeine [ROBITUSSIN w/CODEINE] 5 ml PO Q6H PRN PRN Reason: Cough Bupropion HCl [Wellbutrin Xl] 300 mg PO DAILY Discontinued Hydrochlorothiazide 25 mg PO DAILY Metoprolol [Lopressor] 50 mg PO BID Furosemide [Lasix] 20 mg PO DAILY predniSONE [PredniSONE] 10 mg PO TAPER Levofloxacin [Levaquin] 500 mg PO DAILY Home Medications: Anastrozole [Arimidex] 1 mg PO DAILY #30 tablet 01/23/15 [Rx] Cholecalciferol (Vitamin D3) [Vitamin D] 1,000 unit PO DAILY 01/23/15 [History] Levothyroxine [Synthroid] 112 mcg PO 0630 01/23/15 [History] Lisinopril [Zestril] 40 mg PO DAILY 01/23/15 [History] Oxycodone HCl/Acetaminophen [Percocet 10-325 mg Tablet] 1 tab PO Q6H PRN 01/23/15 [History] Pravastatin Sodium [Pravachol] 20 mg PO DAILY 01/23/15 [History] TraZODone 50 mg PO HS PRN 01/23/15 [History] Albuterol Sulfate [Proair Hfa] 2 puff IH Q4H PRN 08/25/18 [History] Aspirin [Lo-Dose Aspirin EC] 81 mg PO DAILY 08/25/18 [History] Bupropion HCl [Wellbutrin Xl] 300 mg PO DAILY 08/25/18 [History] Citalopram Hydrobromide [Citalopram HBr] 40 mg PO DAILY 08/25/18 [History] Folic Acid 1.6 mg PO DAILY 08/25/18 [History] Gabapentin [Neurontin] 100 mg PO BID 08/25/18 [History] GuaiFENesin/Codeine [ROBITUSSIN w/CODEINE] 5 ml PO Q6H PRN 08/25/18 [History] Loperamide HCl [Anti-Diarrheal] 2 mg PO QID PRN 08/25/18 [History] Pantoprazole Sodium [Protonix] 40 mg PO DAILY 08/25/18 [History] Furosemide [Lasix] 40 mg PO DAILY #30 tablet 08/28/18 [Rx] Metoprolol XL (24 HR) Succ [Toprol Xl] 100 mg PO DAILY #30 tab.er.24h 08/28/18 [Rx] Nicotine Patch [Nicoderm] 14 mg TD DAILY #30 patch.td24 08/28/18 [Rx] predniSONE [PredniSONE] 40 mg PO DAILY #10 tablet 08/28/18 [Rx] Allergies/Adverse Reactions: Allergy/AdvReac Type Severity Reaction Status Date / Time adhesive tape AdvReac Rash Verified 08/26/18 16:48 venlafaxine [From Effexor] AdvReac Flushing Verified 08/26/18 16:48 Date of admission: 08/26/18 13:55 Primary care physician: Ed Castrejon MD Consults: 08/26/18 03:03 Consult to Cardiology [CONS] Routine Comment: Consulting Provider: Cardiology [place] Reason for Consult: new onset acute CHF Call Completed: No 08/26/18 09:11 Consult to Nurse Navigator [CONS] Routine Comment: CHF, PNEUMONIA 08/26/18 13:09 Consult to Nurse Navigator [CONS] Routine Comment: [facility] Referral - Constitutional Vitals: Temp Pulse Resp BP Pulse Ox 97.9 F 57 16 142/64 98 08/28/18 07:46 08/28/18 13:30 08/28/18 13:30 08/28/18 13:30 08/28/18 13:49 General appearance: Present: cooperative, A&O X 3, pleasant, no acute distress, answers questions appropriately Exam: Gen: Alert, awake, Oriented to time,place and person Chest: Diminished breath sounds B/L, moderate wheezing, No crackles, No rales Heart: S1S2+ RRR No murmurs Abd: Soft, NT, BS +, No organomegaly Ext: Trace edema in both LE, chronic RUE lymphedema, pulses are palpable, No calf tenderness Neuro : No acute focal neuro deficits noticed Skin: No rash. - Patient Status Disposition: Home, Self-Care Condition: Good Overall status at discharge: patient is back to baseline - Discharge Instructions Follow Up With: Ed Castrejon MD [Primary Care Provider] - 09/07/18 1:15 pm Mohit Haas MD [Partnered Physician] - Additional Instructions: You have been set up with continuous home oxygen and portable tanks through [employer]. Call them when you get home to have portable tanks delivered. Their number is #[phone]. - Diet and Activity Activity: increase activity as tolerated, wear oxygen at all times (2 lit) Diet: low salt diet
[2018-08-28] MEDS: Furosemide 20 MG TABLET PO SCH (16:32)
[2018-08-29] MEDS: *HR* Heparin 5,000 UNIT/ML VIAL SQ SCH ×3 (05:28→21:26)
[2018-08-29] MEDS: Aspirin Enteric Coated 81 MG Tablet PO SCH (08:49)
[2018-08-29] MEDS: *HR* OxyCODONE/APAP 10/325 TABLET PO PRN ×3 (08:49→21:26)
[2018-08-29] MEDS: Folic Acid 1 MG TABLET PO SCH (08:49)
[2018-08-29] MEDS: levoFLOXacin 500 MG TABLET PO SCH (08:49)
[2018-08-29] MEDS: MethylPREDNISolone 40 MG/ML VIAL IVP SCH (08:49)
[2018-08-29] MEDS: Metoprolol XL (24 HR) Succ 50 MG TAB.ER.24H PO SCH (08:50)
[2018-08-29] MEDS: Anastrozole 1 MG TABLET PO SCH (08:50)
[2018-08-29] MEDS: Cholecalciferol (D-3) 1,000 UNIT TABLET PO SCH (08:50)
[2018-08-29] MEDS: Lisinopril 20 MG TABLET PO SCH (08:50)
[2018-08-29] MEDS: Furosemide 20 MG TABLET PO SCH ×2 (08:50→17:31)
[2018-08-29] MEDS: Gabapentin 100 MG CAPSULE PO SCH ×2 (08:50→21:26)
--- NOTE | 2018-08-29 10:52 | Internal Med Progress Note ---
Hospitalist Progress Note - Encounter Date of Encounter: 08/29/18 Time of Encounter: 10:44 - Subjective Interval History: Life this has been recommended per cardiology due to history of nonischemic cardiomyopathy-awaiting arrival placement of vest on Patient prior to discharge. - Exam Vitals: Temp Pulse Resp BP Pulse Ox 97.3 F L 65 16 118/77 100 08/29/18 06:27 08/29/18 06:27 08/29/18 06:27 08/29/18 06:27 08/29/18 06:27 Exam: Gen: Alert, awake, Oriented to time,place and person Chest: Diminished breath sounds B/L, moderate wheezing, No crackles, No rales Heart: S1S2+ RRR No murmurs Abd: Soft, NT, BS +, No organomegaly Ext: Trace edema in both LE, chronic RUE lymphedema, pulses are palpable, No calf tenderness Neuro : No acute focal neuro deficits noticed Skin: No rash. - Assessment and Plan (1) Hypothyroidism Current Visit: Yes Status: Acute Assessment and Plan: Her TSH slightly elevated inc her home dose levothyroxine to 125 mcg (2) Pneumonia Current Visit: Yes Status: Acute Assessment and Plan: Resolving. Continue antibiotics as prescribed by PCP. Oxygen and aerosols as needed. (3) DVT prophylaxis Current Visit: Yes Status: Acute Assessment and Plan: on Heparin SQ. (4) COPD exacerbation Current Visit: Yes Status: Acute Assessment and Plan: Improving switched to PO steroids cont duoneb on 2 lit O2 now.. her baseline is 2 lit o2 at home as needed cont empirical abx (5) Acute and chronic respiratory failure with hypoxia Current Visit: Yes Status: Acute Assessment and Plan: She does have Oxygen at home to use at 2lit with ambulation and night, however pt do not using it (6) Tobacco dependence Current Visit: Yes Status: Acute Assessment and Plan: Counseled to quit smoking placed on nicotine patch (7) Acute systolic (congestive) heart failure Current Visit: Yes Status: Acute Assessment and Plan: Reviewed Echo showed - LVEF 25%, Severe global LV systolic dysfunction She does have acute systolic CHF exacerbation Switched to PO Lasix 20mg BID Cont ASA, metoprolol, ACEI and statin Card consulted for new onset systolic CHF Had C today - showed moderate LAD Card recommend Life vest placement Card / CM are working on arrange for Lifevest Possible d/c home later today or tomorrow after Lifevest placement (8) NICM (nonischemic cardiomyopathy) Current Visit: Yes Status: Acute Assessment and Plan: -Admitted with new CHF. -TTE with LVEF 25%, global hypokinesis. -S/p LHC yesterday with 15% distal LM, 50% prox LAD, 30% mid LAD, 90% diagonal 1, 20% prox circ, 40% mid RCA. Per , 90% diagonal disease, does not account for degree of cardiomyopathy. -Continue BB, alejo inhibitor. -LifeVest has been recommended per Dr. Haas. -Awaiting arrival and placement of LifeVest prior to discharge - Time Spent with Patient Total time spent is greater than 50% in coordination of care (as documented) at patient's floor/unit and/or counseling patient: Internal Medicine: Result - Labs CBC & Chem 7: 08/26/18 03:53 08/28/18 06:04 - ABG Interpretation ABG results: PT/INR, D-dimer PT 14.7 Seconds (9.4-12.1) H 08/26/18 03:53 Consult Discharge Plan - Plan Additional Instructions: You have been set up with continuous home oxygen and portable tanks through [employer]. Call them when you get home to have portable tanks delivered. Their number is #[phone]. Referrals: Mohit Haas MD [Partnered Physician] - Ed Castrejon MD [Primary Care Provider] - 09/07/18 1:15 pm Prescriptions: Furosemide [Lasix] 40 mg PO DAILY #30 tablet Nicotine Patch [Nicoderm] 14 mg TD DAILY #30 patch.td24 predniSONE [PredniSONE] 40 mg PO DAILY #10 tablet Metoprolol XL (24 HR) Succ [Toprol Xl] 100 mg PO DAILY #30 tab.er.24h (1) Hypothyroidism Qualifiers: Hypothyroidism type: acquired Qualified Code(s): E03.9 - Hypothyroidism, unspecified (2) Pneumonia Qualifiers: Pneumonia type: due to unspecified organism Laterality: bilateral Lung locat ion: lower lobe of lung Qualified Code(s): J18.1 - Lobar pneumonia, unspecified organism
--- NOTE | 2018-08-29 15:10 | Cardiology Progress Note ---
Date of Encounter: 08/29/18 Time of Encounter: 13:30 Assessment and Plan (1) NICM (nonischemic cardiomyopathy) Current Visit: Yes Status: Acute Per cardiology: -Admitted with new CHF. -TTE with LVEF 25%, global hypokinesis. -S/p LHC yesterday with 15% distal LM, 50% prox LAD, 30% mid LAD, 90% diagonal 1, 20% prox circ, 40% mid RCA. Per , 90% diagonal disease, does not account for degree of cardiomyopathy. -On BB, alejo inhibitor. -Euvolemic on exam. -Has been recommended for life vest by . -Recommend life vest, ordered. -Cardiology will sign off, will arrange outpatient follow up. Discussion w patient/family: The assessment and plan as outlined above was discussed with the patient who expressed understanding and agreement. All questions were answered. Thank you for involving us in the care of your patient. Please call with any questions. Discussed and reviewed with . Subjective Principal diagnosis: NICM Interval history: Patient reports symptoms improved today. Anxious for discharge. Objective Vital Signs, Last 4 Hours Temp Pulse Resp BP Pulse Ox 08/29/18 14:33 97.5 F L 49 16 94/61 94 General: Conversant, No Apparent Distress HEENT: Atraumatic, Normocephaly, Mucus Membranes Moist Neck: No JVD, Normal carotid pulses Cardiac: Reg Rate and Rhythm, Normal S1 and S2, No Murmur Lungs: Normal Breath Sounds, No Wheeze, Rales, Rhonchi Neuro: Alert and responsive, No focal deficits noted Abdomen: Soft, Non-Tender Skin: No rashes noted on visualized skin Musculoskeletal: No Chest Wall Tenderness Extremities: No Clubbing, No Cyanosis, No Edema, Normal Pulses, Other (Right upper extremity lymphadema noted. ) Results 08/26/18 03:53 08/28/18 06:04 Active Medications Acetaminophen (Tylenol) 650 mg PO Q6HR PRN PRN Reason: Mild Pain/Fever Stop: 02/25/19 03:04 Albuterol Sulfate (Proventil Inhaler) 2 puff IH Q4H PRN PRN Reason: Shortness Of Breath Stop: 02/25/19 03:10 Albuterol/Ipratropium (Duoneb) 3 ml IH [id number] PRN PRN Reason: Shortness Of Breath/Wheezing Stop: 02/25/19 13:24 Last Admin: 08/28/18 00:23 Dose: 3 ml Documented by: Anastrozole (Arimidex) 1 mg PO DAILY [facility] Stop: 02/25/19 09:01 Last Admin: 08/29/18 08:50 Dose: 1 mg Documented by: Aspirin (Aspirin Ec) 81 mg PO DAILY [facility] Stop: 02/25/19 09:01 Last Admin: 08/29/18 08:49 Dose: 81 mg Documented by: Atorvastatin Calcium (Lipitor) 10 mg PO DAILY [facility] Stop: 02/25/19 09:01 Last Admin: 08/29/18 08:51 Dose: 10 mg Documented by: Folic Acid (Folic Acid) 1.5 mg PO DAILY [facility] Stop: 02/25/19 09:01 Last Admin: 08/29/18 08:49 Dose: 1.5 mg Documented by: Furosemide (Lasix) 20 mg PO BIDDIURETIC [facility] Stop: 02/27/19 17:01 Last Admin: 08/29/18 08:50 Dose: 20 mg Documented by: Gabapentin (Neurontin) 100 mg PO BID [facility] Stop: 02/25/19 09:01 Last Admin: 08/29/18 08:50 Dose: 100 mg Documented by: Guaifenesin/Codeine Phosphate (Robitussin W/Codeine) 5 ml PO Q6H PRN; Protocol PRN Reason: Cough Stop: 02/25/19 03:10 Heparin Sodium (Porcine) (Heparin) 5,000 unit SQ Q8HCO [facility]ENN[facility] Stop: 02/25/19 06:01 Last Admin: 08/29/18 13:43 Dose: 5,000 unit Documented by: Levofloxacin (Levaquin) 500 mg PO DAILY [facility]; Protocol Stop: 02/25/19 09:01 Last Admin: 08/29/18 08:49 Dose: 500 mg Documented by: Levothyroxine Sodium (Synthroid) 125 mcg PO 0630 [facility] Stop: 02/26/19 06:31 Last Admin: 08/29/18 05:28 Dose: 125 mcg Documented by: Lisinopril (Zestril) 40 mg PO DAILY [facility]; Protocol Stop: 02/25/19 09:01 Last Admin: 08/29/18 08:50 Dose: 40 mg Documented by: Methylprednisolone (Solu-Medrol) 40 mg IVP DAILY [facility] Stop: 02/27/19 09:01 Last Admin: 08/29/18 08:49 Dose: 40 mg Documented by: Metoprolol Succinate (Toprol Xl) 100 mg PO DAILY [facility] Stop: 02/28/19 09:01 Last Admin: 08/29/18 08:50 Dose: 100 mg Documented by: Naloxone HCl (Narcan) 0.4 mg IVP Q2MPRN PRN PRN Reason: SEE COMMENTS Stop: 02/25/19 03:04 Omeprazole (Prilosec) 40 mg PO DAILY@0730 [facility] Stop: 02/25/19 07:31 Last Admin: 08/29/18 08:49 Dose: 40 mg Documented by: Ondansetron HCl (Zofran) 4 mg IVP Q8HR PRN PRN Reason: Nausea And Vomiting Stop: 02/25/19 03:04 Oxycodone/Acetaminophen (Percocet 10/325) 1 each PO Q6H PRN PRN Reason: Pain Stop: 02/25/19 03:10 Last Admin: 08/29/18 08:49 Dose: 1 each Documented by: Vitamin D (Vitamin D) 1,000 unit PO DAILY [facility] Stop: 02/25/19 09:01 Last Admin: 08/29/18 08:50 Dose: 1,000 unit Documented by: - Imaging and Cardiology Chest Xray: report reviewed Echo: report reviewed Cardiac cath: report reviewed - EKG Interpretation EKG results cardiology: other (Telemetry reviewed with average HR previous 12 hours noted to be 69, SR. PVCs, PACs, short run of atrial tachycardia noted.) Consult Discharge Plan - Plan Additional Instructions: You have been set up with continuous home oxygen and portable tanks through [employer]. Call them when you get home to have portable tanks delivered. Their number is #[phone]. Referrals: Mohit Haas MD [Partnered Physician] - Ed Castrejon MD [Primary Care Provider] - 09/07/18 1:15 pm Prescriptions: Furosemide [Lasix] 40 mg PO DAILY #30 tablet Nicotine Patch [Nicoderm] 14 mg TD DAILY #30 patch.td24 predniSONE [PredniSONE] 40 mg PO DAILY #10 tablet Metoprolol XL (24 HR) Succ [Toprol Xl] 100 mg PO DAILY #30 tab.er.24h
[2018-08-30] MEDS: *HR* OxyCODONE/APAP 10/325 TABLET PO PRN ×2 (04:14→10:09)
[2018-08-30] MEDS: *HR* Heparin 5,000 UNIT/ML VIAL SQ SCH (06:24)
[2018-08-30] MEDS: levoFLOXacin 500 MG TABLET PO SCH (08:48)
[2018-08-30] MEDS: MethylPREDNISolone 40 MG/ML VIAL IVP SCH (08:48)
[2018-08-30] MEDS: Lisinopril 20 MG TABLET PO SCH (08:49)
[2018-08-30] MEDS: Metoprolol XL (24 HR) Succ 50 MG TAB.ER.24H PO SCH (08:49)
[2018-08-30] MEDS: Aspirin Enteric Coated 81 MG Tablet PO SCH (08:49)
[2018-08-30] MEDS: Cholecalciferol (D-3) 1,000 UNIT TABLET PO SCH (08:49)
[2018-08-30] MEDS: Folic Acid 1 MG TABLET PO SCH (08:49)
[2018-08-30] MEDS: Gabapentin 100 MG CAPSULE PO SCH (08:49)
[2018-08-30] MEDS: Furosemide 20 MG TABLET PO SCH (08:49)
[2018-08-30] MEDS: Anastrozole 1 MG TABLET PO SCH (08:50)
[2018-08-30 11:36] VITALS: BP 108/70
--- NOTE | 2018-08-30 14:02 | Event Note ---
Date of Encounter: 08/30/18 Time of Encounter: 14:00 Patient has received lifevest and it has been fitted and placed. She is ready for discharge- currently hemodynamcally stable with no CP She will follow up with cardiology
--- NOTE | 2018-09-02 07:25 | Invasive Diagnostic Lab Proc ---
Name: Kindra Mata Date of Study: 08/28/2018 Date: 1945 Ht: 61.8in Medical Record#: [id number] Age: 72 Wt: 196.21lb Gender: Female BSA: 1.89 Order #: [id number] BMI: 36.11 Physicians Procedure Physician: Mohit Haas MD, FACC Referring MD: Referring MD: Staff Name Position Time In Jesus Brown RN Monitor 10:53 AM Tavia Germain RT (R) Scrub 10:53 AM Kiran Quinteros RN Hand Braille Transcriber 10:53 AM Becky Persaud RT (R) Scrub 11:00 AM Procedures Performed Procedure L HRT ARTERY/VENTRICLE ANGIO Pre-Procedure Checklist Informed consent is complete signed and on chart. H&P is on chart. ID band is on and ID verified with patient. Patient NPO for procedure The procedure was described for the patient and questions were answered. ECG is on chart. Plan of Care Patient will tolerate the procedure without complications. Adequate level of comfort will be maintained. Hemodynamics will remain stable Patient will recover from procedure without complications. Respiratory function will be maintained. Cardiac rhythm will remain stable. Patient temperature will be maintained. Patient and/or family have verbalized understanding of the procedure. Patient Education Chief Complaint/Reason for Test: Cardiac Cath Developmental Category: Geriatric (65+ years) Developmentally Appropriate for Age: Yes Learning Barriers: None Education Needs: Procedure Education Method: Verbal Information Taught: Cardiac Cath Educational Evaluation: Able to repeat information Intravenous Access Time IV Size Location DC'd Fluid/Drip Rate Units RN 20g 1 02/27" Patent On Arrival Lt Antecubital 0.9NaCl ml/hr Allergies NKDA Latex adhesive tape venlafaxine ADHESIVES NO KNOWN DRUG ALLERGIES CODEINE Vital Signs Time BP (mmHg) HR (bpm) O2 Sat. RR (bpm) LOC / % 5 = Fully awake and oriented or at pre-proc level 10:53 AM / % 5 = Fully awake and oriented or at pre-proc level 10:53 AM / % 4 = Oriented but drowsy 11:08 AM / % 4 = Oriented but drowsy 10:57 AM 115 / 98 67 % 16 11:03 AM 123 / 64 58 98 % 13 11:07 AM 124 / 68 62 100 % 18 11:12 AM 129 / 62 69 100 % 23 11:17 AM 122 / 72 69 100 % 15 11:22 AM 137 / 73 61 100 % 13 11:27 AM 144 / 65 62 99 % 14 Procedural Medications Time Medication Dose Units Method Given By 10:53 AM Oxygen 2 L/min nasal cannula Kiran Quinteros RN 10:56 AM Versed 2 mg Intravenous Kiran Quinteros RN 10:56 AM Fentanyl 50 mcg Intravenous Kiran Quinteros RN 11:13 AM Lidocaine 2% 0.5 ml Subcutaneous Mohit Haas MD, FACC 11:16 AM Heparin 4000 units Nitroglycerin 200 mcg Verapamil 2.5 mg Intraarterial Mohit Haas MD, FACC Nitin Score Preprocedure Postprocedure Activity 2- Moves 4 extremities sustained head lift Activity 2- Moves 4 extremities sustained head lift Circulation 2- SBP +/= 20 points of pre-anesthetic level Circulation 2- SBP +/= 20 points of pre-anesthetic level Consciousness 2- Awake and alert oriented x 3 Consciousness 2- Awake and alert oriented x 3 O2 Saturation 2- Able to maintain O2 satruation of 92% on room air O2 Saturation 2- Able to maintain O2 satruation of 92% on room air Respiratory 2- Able to deep breathe and cough well Respiratory 2- Able to deep breathe and cough well Total Score 10 Total Score 10 Contrast Agent: Isovue Diagnostic Contrast: 63 ml Total Contrast: 63 ml Fluoro Dose: 18 mGy Procedure Log Time Note Enter By 10:48 AM Pt arrived to chemical laboratory assistant 2 at 10:48 cedwards 10:48 AM Physician arrived 10:48 cedwards 10:48 AM Radha completed ced[place] 10:48 AM Sign in performed according to hospital policy. Informed consent was obtained. cedwards 10:48 AM Procedure start 10:48 cedwards 10:48 AM Patient charges- Angio tray pack, Navilyst 3mm J, Pulse Oximetry and ACIST tubing and transducer cedwards 10:48 AM Case Delayed No cedwards 10:53 AM Time: 10:53 Oxygen on at 2 L/min per nasal cannula by Kiran Quinteros RN ced[place] 10:53 AM Jesus Brown RN Position: Monitor Time in: 10:53 cedwards 10:53 AM Tavia Germain RT (R) Position: Scrub Time in: 10:53 cedwards 10:53 AM Kiran Quinteros RN Position: Hand Braille Transcriber Time in: 10:53 cedwards 10:53 AM Time: :53 Patient comfortable and pain free: Yes cedwards 10:53 AM Time: :53LOC: 5 = Fully awake and oriented or at pre-proc level cedwards 10:55 AM Vitals capture started with the following parameters, Patient=Adult, Interval=5 min, Initial Fhpbczev=645 mmHg, Deflation Rate=3 mmHg, Cuff placed on Right Arm 10:55 AM Vitals capture stopped. 10:55 AM CathStat 10:56 AM Time: 10:56 Versed 2 mg Intravenous Given by Kiran Quinteros RN ced[place] 10:56 AM Time: 10:56 Fentanyl 50 mcg Intravenous Given by Kiran Quinteros RN ced[place] 10:56 AM Vitals capture started with the following parameters, Patient=Adult, Interval=5 min, Initial Vskwhjqp=501 mmHg, Deflation Rate=3 mmHg, Cuff placed on Right Arm 10:56 AM Recorded ECG: HR=73 Condition=Condition 1 10:57 AM HR=67 bpm, FQQW=612/98 mmhg, Resp=16 B/min 11:00 AM Becky Persaud RT (R) Position: Scrub Time in: 11:00 cedwards 11:03 AM HR=58 bpm, ODCX=432/64 mmhg, SpO2=98.0 %, Resp=13 B/min, EtCO2=26 mmHg, Comment=NSR 11:06 AM Pressure channel 1 zeroed. 11:07 AM HR=62 bpm, TONK=874/68 mmhg, CsH9=590.0 %, Resp=18 B/min, EtCO2=28 mmHg, Comment=NSR 11:08 AM Time: :53 Patient comfortable and pain free: Yes ced[place] 11:08 AM Time: :53LOC: 4 = Oriented but drowsy ced[place] 11:12 AM HR=69 bpm, DFTK=286/62 mmhg, ZeO8=821.0 %, Resp=23 B/min, EtCO2=32 mmHg, Comment=NSR 11:13 AM Clinical Presentation: No symptoms, no angina cedwards 11:13 AM Time out was performed according to hospital policy. Conscious sedation and anesthesia was achieved (see medication log with in this report above) ced[place] 11:14 AM Time: : 0.5 ml Lidocaine 2% to left radial Subcutaneous Given by Mohit Haas MD, [facility] cedwards 11:15 AM Access obtained by percutaneous puncture. 5/6Fr 11cm Terumo Glidesheath sheath placed in left Radial artery. [id number] cedwards 11:16 AM 0.035 260cm Navilyst 3mmJ wire [id number] cedwards 11:16 AM Time: 11:16 Patient given 4,000 units Heparin, 200 mcg Nitroglycerin, and 2.5 mg Verapamil Intraarterial by Mohit Haas MD, [facility]. This is given to reduce risk of vessel spasm and thrombosis. cedwards 11:17 AM HR=69 bpm, JJYQ=781/72 mmhg, YtB1=412.0 %, Resp=15 B/min, EtCO2=35 mmHg, Comment=NSR 11:17 AM 5Fr FL 4 catheter inserted over the wire [facility] cedwards 11:18 AM Recorded Pressure: Ao, HR=58, Condition=Condition 1 (Aorta) Ao 95/61/76 11:18 AM LCA angiography performed in multiple views. cedwards 11:20 AM Catheter removed cedwards 11:20 AM 5Fr FR 4 catheter inserted over the wire [facility] cedwards 11:21 AM RCA angiography performed in multiple views. cedwards 11:21 AM Lesion found in Distal LMCA. Pre Stenosis: 15 Pre CRYSTAL Flow: cedwards 11:21 AM Lesion found in Proximal LAD. Pre Stenosis: 50 Pre CRYSTAL Flow: cedwards 11:21 AM Lesion found in Mid LAD. Pre Stenosis: 30 Pre CRYSTAL Flow: cedwards 11:21 AM Lesion found in 1st Diagonal. Pre Stenosis: 90 Pre CRYSTAL Flow: cedwards 11:21 AM Lesion found in Proximal Circumflex. Pre Stenosis: 20 Pre CRYSTAL Flow: cedwards 11:22 AM HR=61 bpm, JPXC=617/73 mmhg, PwA5=144.0 %, Resp=13 B/min, EtCO2=45 mmHg, Comment=NSR 11:22 AM Recorded Pressure: Ao, HR=64, Condition=Condition 1 (Aorta) Ao 98/66/81 11:23 AM Lesion found in Mid RCA. Pre Stenosis: 40 Pre CRYSTAL Flow: cedwards 11:23 AM Coronary Dominance: right cedwards 11:23 AM Time: 11:08 Patient comfortable and pain free: Yes cedwards 11:23 AM Time: 11:08LOC: 4 = Oriented but drowsy cedwards 11:24 AM Catheter removed cedwards 11:24 AM 5Fr Pigtail catheter inserted over the wire DNC cedwards 11:24 AM Catheter crossed the aortic valve and was selectively placed in the left ventricle. Pressures recorded on pullback for left heart catheterization. cedwards 11:26 AM Recorded Pressure: LV, HR=51, Condition=Condition 1 (Left Ventricle) LV 121/13/23 11:26 AM Pressure channel 1 zeroed. 11:26 AM Recorded Pressure: LV, HR=61, Condition=Condition 1 (Left Ventricle) LV 111/5/10 11:27 AM Recorded Pressure: LV, Ao, HR=60, Condition=Condition 1 (Left Ventricle) LV 106/4/10, (Aorta) Ao 108/59/78 11:27 AM Bolus angiogram of left Ventricle complete: 12 ml/sec for a total of 35 mls cedwards 11:27 AM Catheter removed cedwards 11:27 AM HR=62 bpm, TBXK=642/65 mmhg, SpO2=99.0 %, Resp=14 B/min 11:28 AM Procedure completed at 11:28 08/28/2018 cedwards 11:28 AM Did you address CRYSTAL flow and Dominance? YesCoronary Dominance: right cedwards 11:29 AM Sign out completed: Radiation Dose 126.78 mGy, 18.1 Gy/cm2 Fluoro Time: 2.2 Isovue 370 - 200ml contrast 63.4 ml given by Mohit Haas MD, [facility]. Complications: None. The patient was discharged out of the electrical laboratory technician in stable condition. Sedation minutes 40. Cardiac Rehab Consult needed: No. Confirmed administered medications: Yes cedwards 11:29 AM Isovue 370 - 200ml,1 Bottle(s) used. cedwards 11:29 AM Arterial sheath pulled, Vasc Band closure device used and was Successful S/N. cedwards 11:29 AM 20 ml air in Vasc Band. cedwards 11:29 AM Estimated Blood Loss: minimal cedwards 11:29 AM Post ECG NSR cedwards 11:29 AM Post Blood Pressure 144/65 cedwards 11:31 AM 11:31 Post Pulses Bilateral DP & PT 2+ cedwards 11:31 AM Information taught Cardiac Cath and Vasc Band cedwards 11:31 AM Education needs Procedure, Plan of Care, and Disease Process cedwards 11:31 AM Learning barriers :None cedwards 11:31 AM Education Methods Verbal cedwards 11:31 AM Education evaluation Able to repeat information cedwards 11:31 AM Site status No bleeding/ No Hematoma - Lt Wrist as reported by Tavia Germain RT (R) at 11:31 cedwards 11:31 AM Plavix, Effient or Brilinta given No cedwards 11:31 AM Delay to floor No cedwards 11:31 AM Family placed in consult room. cedwards 11:31 AM Complications: None cedwards 11:33 AM Report given to Laney WALLER Pt taken to 3B Room #34. 11:33 cedwards Complications Complication None None Hemodynamics Pressures Site Systolic/A Wave Diastolic/V Wave Mean AO 95 61 76 AO 98 66 81 LV 121 13 23 LV 111 5 10 LV 106 4 10 AO 108 59 78 Post Procedure Information Blood Pressure: 144/65 mmHg Rhythm: NSR Post procedural instructions were given Closure Device Time Device Success/Fail 08/28/2018 11:34:00 AM Mechanical Compression Successful Site Checks Time Location Status Staff Sheath In? Note 11:31 AM Lt Wrist No bleeding/ No Hematoma Tavia Germain RT (R) Pulses Time Site Pre-Procedure Post-Procedure Note Bilateral DP & PT 2+ Bilateral radial 2+ 11:31:00 AM Bilateral DP & PT 2+ Updated by Jesus Brown RN on 08/28/2018 11:38:34 AM electronically signed on 09/02/2018 7:20:52 AM with status of Final
--- NOTE | 2018-09-02 15:11 | Invasive Diagnostic Lab Proc ---
Name: Kindra Mata Date of Study: 08/28/2018 Date: 1945 Ht: 61.8in Medical Record#: [id number] Age: 72 Wt: 196.21lb Gender: Female BSA: 1.89 Order #: [id number] BMI: 36.11 Physicians Procedure Physician: Mohit Haas MD, FACC Referring MD: Referring MD: Staff Name Position Time In Jesus Brown RN Monitor 10:53 AM Tavia Germain RT (R) Scrub 10:53 AM Kiran Quinteros RN Assembly Room Supervisor 10:53 AM Becky Persaud RT (R) Scrub 11:00 AM Procedures Performed Procedure L HRT ARTERY/VENTRICLE ANGIO Pre-Procedure Checklist Informed consent is complete signed and on chart. H&P is on chart. ID band is on and ID verified with patient. Patient NPO for procedure The procedure was described for the patient and questions were answered. ECG is on chart. Plan of Care Patient will tolerate the procedure without complications. Adequate level of comfort will be maintained. Hemodynamics will remain stable Patient will recover from procedure without complications. Respiratory function will be maintained. Cardiac rhythm will remain stable. Patient temperature will be maintained. Patient and/or family have verbalized understanding of the procedure. Patient Education Chief Complaint/Reason for Test: Cardiac Cath Developmental Category: Geriatric (65+ years) Developmentally Appropriate for Age: Yes Learning Barriers: None Education Needs: Procedure Education Method: Verbal Information Taught: Cardiac Cath Educational Evaluation: Able to repeat information Intravenous Access Time IV Size Location DC'd Fluid/Drip Rate Units RN 20g 1 02/27" Patent On Arrival Lt Antecubital 0.9NaCl ml/hr Allergies NKDA Latex adhesive tape venlafaxine ADHESIVES NO KNOWN DRUG ALLERGIES CODEINE Vital Signs Time BP (mmHg) HR (bpm) O2 Sat. RR (bpm) LOC / % 5 = Fully awake and oriented or at pre-proc level 10:53 AM / % 5 = Fully awake and oriented or at pre-proc level 10:53 AM / % 4 = Oriented but drowsy 11:08 AM / % 4 = Oriented but drowsy 10:57 AM 115 / 98 67 % 16 11:03 AM 123 / 64 58 98 % 13 11:07 AM 124 / 68 62 100 % 18 11:12 AM 129 / 62 69 100 % 23 11:17 AM 122 / 72 69 100 % 15 11:22 AM 137 / 73 61 100 % 13 11:27 AM 144 / 65 62 99 % 14 Procedural Medications Time Medication Dose Units Method Given By 10:53 AM Oxygen 2 L/min nasal cannula Kiran Quinteros RN 10:56 AM Versed 2 mg Intravenous Kiran Quinteros RN 10:56 AM Fentanyl 50 mcg Intravenous Kiran Quinteros RN 11:13 AM Lidocaine 2% 0.5 ml Subcutaneous Mohit Haas MD, FACC 11:16 AM Heparin 4000 units Nitroglycerin 200 mcg Verapamil 2.5 mg Intraarterial Mohit Haas MD, FACC Nitin Score Preprocedure Postprocedure Activity 2- Moves 4 extremities sustained head lift Activity 2- Moves 4 extremities sustained head lift Circulation 2- SBP +/= 20 points of pre-anesthetic level Circulation 2- SBP +/= 20 points of pre-anesthetic level Consciousness 2- Awake and alert oriented x 3 Consciousness 2- Awake and alert oriented x 3 O2 Saturation 2- Able to maintain O2 satruation of 92% on room air O2 Saturation 2- Able to maintain O2 satruation of 92% on room air Respiratory 2- Able to deep breathe and cough well Respiratory 2- Able to deep breathe and cough well Total Score 10 Total Score 10 Contrast Agent: Isovue Diagnostic Contrast: 63 ml Total Contrast: 63 ml Fluoro Dose: 18 mGy Procedure Log Time Note Enter By 10:48 AM Pt 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 Informed consent was obtained. cedwards 10:48 AM Procedure start 10:48 cedwards 10:48 AM Patient charges- Angio tray pack, Navilyst 3mm J, Pulse Oximetry and ACIST tubing and transducer cedwards 10:48 AM Case Delayed No ced[place] 10:53 AM Time: 10:53 Oxygen on at 2 L/min per nasal cannula by Kiran Quinteros RN c[place] 10:53 AM Jesus Brown RN Position: Monitor Time in: 10:53 cedwards 10:53 AM Tavia eGrmain RT (R) Position: Scrub Time in: 10:53 cedwards 10:53 AM Kiran Quinteros RN Position: Assembly Room Supervisor Time in: 10:53 cedwards 10:53 AM Time: :53 Patient comfortable and pain free: Yes cedwards 10:53 AM Time: :53LOC: 5 = Fully awake and oriented or at pre-proc level cedwards 10:55 AM Vitals capture started with the following parameters, Patient=Adult, Interval=5 min, Initial Syrkkkju=021 mmHg, Deflation Rate=3 mmHg, Cuff placed on Right Arm 10:55 AM Vitals capture stopped. 10:55 AM CathStat 10:56 AM Time: 10:56 Versed 2 mg Intravenous Given by Kiran Quinteros RN ced[place] 10:56 AM Time: 10:56 Fentanyl 50 mcg Intravenous Given by Kiran Quinteros RN ced[place] 10:56 AM Vitals capture started with the following parameters, Patient=Adult, Interval=5 min, Initial Ycgonkmp=434 mmHg, Deflation Rate=3 mmHg, Cuff placed on Right Arm 10:56 AM Recorded ECG: HR=73 Condition=Condition 1 10:57 AM HR=67 bpm, VXTZ=953/98 mmhg, Resp=16 B/min 11:00 AM Becky Persaud RT (R) Position: Scrub Time in: 11:00 cedwards 11:03 AM HR=58 bpm, ZKAE=401/64 mmhg, SpO2=98.0 %, Resp=13 B/min, EtCO2=26 mmHg, Comment=NSR 11:06 AM Pressure channel 1 zeroed. 11:07 AM HR=62 bpm, JWAR=737/68 mmhg, DoT8=191.0 %, Resp=18 B/min, EtCO2=28 mmHg, Comment=NSR 11:08 AM Time: :53 Patient comfortable and pain free: Yes cedwards 11:08 AM Time: :53LOC: 4 = Oriented but drowsy cedwards 11:12 AM HR=69 bpm, XHCI=340/62 mmhg, WjH7=037.0 %, Resp=23 B/min, EtCO2=32 mmHg, Comment=NSR 11:13 AM Clinical Presentation: No symptoms, no angina cedwards 11:13 AM Time out was performed according to hospital policy. Conscious sedation and anesthesia was achieved (see medication log with in this report above) cedwards 11:14 AM Time: : 0.5 ml Lidocaine 2% to left radial Subcutaneous Given by Mohit Haas MD, [facility] cedwards 11:15 AM Access obtained by percutaneous puncture. 5/6Fr 11cm Terumo Glidesheath sheath placed in left Radial artery. [id number] cedwards 11:16 AM 0.035 260cm Navilyst 3mmJ wire [id number] cedwards 11:16 AM Time: 11:16 Patient given 4,000 units Heparin, 200 mcg Nitroglycerin, and 2.5 mg Verapamil Intraarterial by Mohit Haas MD, [facility]. This is given to reduce risk of vessel spasm and thrombosis. cedwards 11:17 AM HR=69 bpm, YHQT=866/72 mmhg, BnM1=176.0 %, Resp=15 B/min, EtCO2=35 mmHg, Comment=NSR 11:17 AM 5Fr FL 4 catheter inserted over the wire [facility] cedwards 11:18 AM Recorded Pressure: Ao, HR=58, Condition=Condition 1 (Aorta) Ao 95/61/76 11:18 AM LCA angiography performed in multiple views. cedwards 11:20 AM Catheter removed cedwards 11:20 AM 5Fr FR 4 catheter inserted over the wire [facility] cedwards 11:21 AM RCA angiography performed in multiple views. cedwards 11:21 AM Lesion found in Distal LMCA. Pre Stenosis: 15 Pre CRYSTAL Flow: cedwards 11:21 AM Lesion found in Proximal LAD. Pre Stenosis: 50 Pre CRYSTAL Flow: cedwards 11:21 AM Lesion found in Mid LAD. Pre Stenosis: 30 Pre CRYSTAL Flow: cedwards 11:21 AM Lesion found in 1st Diagonal. Pre Stenosis: 90 Pre CRYSTAL Flow: cedwards 11:21 AM Lesion found in Proximal Circumflex. Pre Stenosis: 20 Pre CRYSTAL Flow: cedwards 11:22 AM HR=61 bpm, WFNA=648/73 mmhg, WbA2=753.0 %, Resp=13 B/min, EtCO2=45 mmHg, Comment=NSR 11:22 AM Recorded Pressure: Ao, HR=64, Condition=Condition 1 (Aorta) Ao 98/66/81 11:23 AM Lesion found in Mid RCA. Pre Stenosis: 40 Pre CRYSTAL Flow: cedwards 11:23 AM Coronary Dominance: right cedwards 11:23 AM Time: 11:08 Patient comfortable and pain free: Yes cedwards 11:23 AM Time: 11:08LOC: 4 = Oriented but drowsy cedwards 11:24 AM Catheter removed cedwards 11:24 AM 5Fr Pigtail catheter inserted over the wire DNC cedwards 11:24 AM Catheter crossed the aortic valve and was selectively placed in the left ventricle. Pressures recorded on pullback for left heart catheterization. cedwards 11:26 AM Recorded Pressure: LV, HR=51, Condition=Condition 1 (Left Ventricle) LV 121/13/23 11:26 AM Pressure channel 1 zeroed. 11:26 AM Recorded Pressure: LV, HR=61, Condition=Condition 1 (Left Ventricle) LV 111/5/10 11:27 AM Recorded Pressure: LV, Ao, HR=60, Condition=Condition 1 (Left Ventricle) LV 106/4/10, (Aorta) Ao 108/59/78 11:27 AM Bolus angiogram of left Ventricle complete: 12 ml/sec for a total of 35 mls cedwards 11:27 AM Catheter removed cedwards 11:27 AM HR=62 bpm, OIEY=571/65 mmhg, SpO2=99.0 %, Resp=14 B/min 11:28 AM Procedure completed at 11:28 08/28/2018 cedwards 11:28 AM Did you address CRYSTAL flow and Dominance? YesCoronary Dominance: right cedwards 11:29 AM Sign out completed: Radiation Dose 126.78 mGy, 18.1 Gy/cm2 Fluoro Time: 2.2 Isovue 370 - 200ml contrast 63.4 ml given by Mohit Haas MD, [facility]. Complications: None. 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 Sedation minutes 40. Cardiac Rehab Consult needed: No. Confirmed administered medications: Yes cedwards 11:29 AM Isovue 370 - 200ml,1 Bottle(s) used. cedwards 11:29 AM Arterial sheath pulled, Vasc Band closure device used and was Successful S/N. cedwards 11:29 AM 20 ml air in Vasc Band. cedwards 11:29 AM Estimated Blood Loss: minimal cedwards 11:29 AM Post ECG NSR cedwards 11:29 AM Post Blood Pressure 144/65 cedwards 11:31 AM 11:31 Post Pulses Bilateral DP & PT 2+ cedwards 11:31 AM Information taught Cardiac Cath and Vasc Band cedwards 11:31 AM Education needs Procedure, Plan of Care, and Disease Process cedwards 11:31 AM Learning barriers :None cedwards 11:31 AM Education Methods Verbal cedwards 11:31 AM Education evaluation Able to repeat information cedwards 11:31 AM Site status No bleeding/ No Hematoma - Lt Wrist as reported by Tavia Germain RT (R) at 11:31 cedwards 11:31 AM Plavix, Effient or Brilinta given No cedwards 11:31 AM Delay to floor No cedwards 11:31 AM Family placed in consult room. cedwards 11:31 AM Complications: None cedwards 11:33 AM Report given to Laney WALLER Pt taken to 3B Room #34. 11:33 cedwards Complications Complication None None Hemodynamics Pressures Site Systolic/A Wave Diastolic/V Wave Mean AO 95 61 76 AO 98 66 81 LV 121 13 23 LV 111 5 10 LV 106 4 10 AO 108 59 78 Post Procedure Information Blood Pressure: 144/65 mmHg Rhythm: NSR Post procedural instructions were given Closure Device Time Device Success/Fail 08/28/2018 11:34:00 AM Mechanical Compression Successful Site Checks Time Location Status Staff Sheath In? Note 11:31 AM Lt Wrist No bleeding/ No Hematoma Tavia Germain RT (R) Pulses Time Site Pre-Procedure Post-Procedure Note Bilateral DP & PT 2+ Bilateral radial 2+ 11:31:00 AM Bilateral DP & PT 2+ Updated by Jesus Brown RN on 08/28/2018 11:38:34 AM electronically signed on 09/02/2018 7:20:52 AM with status of Final
== END 2018-08-30 15:26 | disposition home or self-care (01) | DRG 286 ==
LOC: 3BNU 19:50 → EMEROOARM 19:50 → 3BNU 22:52 → SUATTDRO 08-26 13:55
PROVIDERS: ADMIT Pediatrics; ATTEND Family Medicine

== ENCOUNTER 2019-01-10 15:15 | Inpatient (IN) ==
[2019-01-10 16:17] LABS: Bilirubin,Urine Negative (Negative); Blood,Urine Negative (Negative); Clarity,Urine Clear (Clear); Color,Urine Yellow (Yellow); Glucose,Urine (UA) Normal (Normal); Ketones,Urine Negative (Negative); Leukocyte Esterase,Urine Negative (Negative); Nitrite,Urine Negative (Negative); PH,Urine 7.5 pH Units (5.0-8.0); Protein,Urine Negative (Neg-Trace); Specific Gravity,Urine 1.009 (1.010-1.025); Urobilinogen,Urine Normal (Normal)
[2019-01-10 16:39] LABS: Basophils % 0.6 %; Eosinophils # 0.1 K/mcL (0.0-0.6); Eosinophils % 2.2 %; Hematocrit 40.3 % (35.3-44.9); Hemoglobin 12.9 g/dL (11.5-15.4); Immature Granulocytes % 0.5 % (0-4); Lymphocytes # 0.6 K/mcL (0.6-4.6); Lymphocytes % 9.7 %; Mean Corpuscular Hemoglobin 31.2 pg (28.0-33.3); Mean Corpuscular Volume 97.6 fL (83.0-100.0); Mean Platelet Volume 9.9 fL (9.4-12.4); Monocytes # 0.4 K/mcL (0.0-1.3); Monocytes % 6.3 %; Neutrophils # 5.3 K/mcL (1.6-8.9); Platelet Count 207 K/mcL (140-400); Red Blood Count 4.13 M/mcL (3.82-4.97); Red Cell Distribution Width 13.4 % (11.5-14.5); Segmented Neutrophils % 80.7 %; White Blood Count 6.5 K/mcL (4.3-11.1)
[2019-01-10 16:47] LABS: INR 1.2; Prothrombin Time 14.1 Seconds (9.4-12.1)
[2019-01-10 16:49] LABS: Activated Partial Thrombo Time 29.1 Seconds (26.0-36.0)
[2019-01-10 17:05] LABS: Alanine Aminotransferase 10 Units/L (7-52); Albumin/Globulin Ratio 1.4 (1.1-2.2); Alkaline Phosphatase 136 Units/L (34-104); Aspartate Amino Transferase 16 Units/L (13-39); BUN/Creatinine Ratio 16 (6-26); Bilirubin,Direct 0.1 mg/dL (0.0-0.2); Bilirubin,Indirect 0.4 mg/dL (0.0-1.0); Bilirubin,Total 0.5 mg/dL (0.3-1.0); Blood Urea Nitrogen 14 mg/dL (8-23); Calcium 9.2 mg/dL (8.6-10.3); Carbon Dioxide 31 mEq/L (23-29); Chloride 101 mEq/L (98-107); Globulin 2.8 g/dL (2.4-3.5); Glucose 110 mg/dL (70-105); Osmolality,Calculated 289 (280-300); Potassium 3.8 mEq/L (3.5-5.1); Sodium 139 mEq/L (136-145); Total Protein 6.8 g/dL (6.4-8.9); Troponin I 0.03 ng/mL (< 0.04); eGFR For African Americans > 60 (> 60); eGFR For Non-African Americans > 60 (> 60)
[2019-01-10] MEDS ORDERED: Furosemide 40 MG/4 ML VIAL IVP ONE (18:43)
[2019-01-10] MEDS: Levalbuterol Neb 1.25 MG/3 ML IH SCH (22:41)
[2019-01-10] MEDS ORDERED: *HR* Heparin 5,000 UNIT/ML VIAL IVP ONE (23:13)
[2019-01-10] MEDS ORDERED: *HR* Heparin 5,000 UNIT/ML VIAL IVP PRN ×2 (23:13)
[2019-01-10] MEDS ORDERED: Heparin 25,000 UNIT/250 ML D5W 25,000 UNIT/250 ML IV.SOLN IVC SCH (23:15)
[2019-01-10 23:21] LABS: Adenovirus Not Detected (Not Detect); Coronavirus 229E Not Detected (Not Detect)
[2019-01-10 23:22] LABS: Bordetella Pertussis Not Detected (Not Detect); Chlamydophila pneumoniae Not Detected (Not Detect); Coronavirus HKU1 Not Detected (Not Detect); Coronavirus NL63 Not Detected (Not Detect); Coronavirus OC43 Not Detected (Not Detect); Human Metapneumovirus Not Detected (Not Detect); Human Rhinovirus/Enterovirus Not Detected (Not Detect); Influenza A Subtype 2009 H1 Not Detected (Not Detect); Influenza A Untypeable Not Detected (Not Detect); Influenza B Not Detected (Not Detect); Mycoplasma pneumoniae Not Detected (Not Detect); Parainfluenza Virus 1 Not Detected (Not Detect); Parainfluenza Virus 2 Not Detected (Not Detect); Parainfluenza Virus 3 Not Detected (Not Detect); Parainfluenza Virus 4 Not Detected (Not Detect); Respiratory Syncytial Virus Not Detected (Not Detect)
[2019-01-10] MEDS ORDERED: Acetaminophen 325 MG TABLET PO PRN (23:41)
[2019-01-10] MEDS ORDERED: Naloxone 0.4 MG/ML INJ IVP PRN (23:41)
[2019-01-11] MEDS: traMADol 50 MG TABLET PO PRN ×2 (00:31→21:28)
[2019-01-11 00:46] LABS: Heparin anti-factor XA UFH 0.05 IU/mL (0.30-0.70)
[2019-01-11 00:47] LABS: INR 1.2; Prothrombin Time 13.6 Seconds (9.4-12.1)
[2019-01-11] MEDS: Levalbuterol Neb 1.25 MG/3 ML IH SCH ×4 (04:45→21:42)
[2019-01-11] MEDS: *HR* OxyCODONE Immed Rel 5 MG TABLET PO PRN ×3 (04:52→23:02)
[2019-01-11 06:37] LABS: Hematocrit 37.5 % (35.3-44.9); Hemoglobin 11.7 g/dL (11.5-15.4); Mean Corpuscular HGB Conc 31.2 g/dL (31.6-35.5); Mean Corpuscular Hemoglobin 30.5 pg (28.0-33.3); Mean Corpuscular Volume 97.9 fL (83.0-100.0); Mean Platelet Volume 9.9 fL (9.4-12.4); Platelet Count 196 K/mcL (140-400); Red Blood Count 3.83 M/mcL (3.82-4.97); Red Cell Distribution Width 13.3 % (11.5-14.5); White Blood Count 7.2 K/mcL (4.3-11.1)
[2019-01-11 06:52] LABS: BUN/Creatinine Ratio 15 (6-26); Blood Urea Nitrogen 14 mg/dL (8-23); Calcium 8.8 mg/dL (8.6-10.3); Carbon Dioxide 35 mEq/L (23-29); Chloride 99 mEq/L (98-107); Chol/HDL Ratio 2.4 (0-4.9); Cholesterol 159 mg/dL (< 200); Glucose 112 mg/dL (70-105); HDL Cholesterol 65 mg/dL (40-59); LDL Cholesterol,Calculated 82 mg/dL (0-99); Magnesium 1.8 mg/dL (1.6-2.6); Osmolality,Calculated 293 (280-300); Phosphorous 4.6 mg/dL (2.7-4.5); Potassium 3.7 mEq/L (3.5-5.1); Sodium 141 mEq/L (136-145); Triglycerides 62 mg/dL (< 150); eGFR For African Americans > 60 (> 60); eGFR For Non-African Americans 57 (> 60)
[2019-01-11] MEDS: Anastrozole 1 MG TABLET PO SCH (08:54)
[2019-01-11] MEDS: BuPROPion XL (24 HR) 150 MG TABLET PO SCH (08:54)
[2019-01-11] MEDS: Furosemide 40 MG/4 ML VIAL IVP SCH ×2 (08:55→16:33)
[2019-01-11] MEDS: Gabapentin 100 MG CAPSULE PO SCH ×2 (08:55→21:28)
[2019-01-11] MEDS: Folic Acid 1 MG TABLET PO SCH (08:55)
[2019-01-11] MEDS: *HR* Heparin 5,000 UNIT/ML VIAL SQ SCH ×2 (14:17→21:31)
[2019-01-11] MEDS: levoFLOXacin 500 MG TABLET PO SCH (16:32)
[2019-01-12] MEDS: Levalbuterol Neb 1.25 MG/3 ML IH SCH ×4 (04:33→22:03)
[2019-01-12] MEDS: *HR* Heparin 5,000 UNIT/ML VIAL SQ SCH ×3 (05:59→21:37)
[2019-01-12 06:32] LABS: Hematocrit 37.3 % (35.3-44.9); Hemoglobin 11.4 g/dL (11.5-15.4); Mean Corpuscular HGB Conc 30.6 g/dL (31.6-35.5); Mean Corpuscular Hemoglobin 30.8 pg (28.0-33.3); Mean Corpuscular Volume 100.8 fL (83.0-100.0); Platelet Count 153 K/mcL (140-400); Red Cell Distribution Width 13.3 % (11.5-14.5); White Blood Count 5.7 K/mcL (4.3-11.1)
[2019-01-12 06:58] LABS: BUN/Creatinine Ratio 17 (6-26); Blood Urea Nitrogen 16 mg/dL (8-23); Calcium 9.4 mg/dL (8.6-10.3); Carbon Dioxide 35 mEq/L (23-29); Chloride 98 mEq/L (98-107); Glucose 96 mg/dL (70-105); Osmolality,Calculated 291 (280-300); Potassium 4.2 mEq/L (3.5-5.1); Sodium 140 mEq/L (136-145); eGFR For African Americans > 60 (> 60); eGFR For Non-African Americans 59 (> 60)
[2019-01-12] MEDS: *HR* OxyCODONE Immed Rel 5 MG TABLET PO PRN ×3 (07:02→21:36)
[2019-01-12] MEDS: Furosemide 40 MG/4 ML VIAL IVP SCH ×2 (09:10→17:46)
[2019-01-12] MEDS: BuPROPion XL (24 HR) 150 MG TABLET PO SCH (09:10)
[2019-01-12] MEDS: Gabapentin 100 MG CAPSULE PO SCH ×2 (09:10→21:36)
[2019-01-12] MEDS: Anastrozole 1 MG TABLET PO SCH (09:10)
[2019-01-12] MEDS: Aspirin Enteric Coated 81 MG Tablet PO SCH (09:11)
[2019-01-12] MEDS: levoFLOXacin 500 MG TABLET PO SCH (09:11)
[2019-01-12] MEDS: Folic Acid 1 MG TABLET PO SCH (09:11)
[2019-01-12] MEDS: traMADol 50 MG TABLET PO PRN (23:41)
[2019-01-13] MEDS: Levalbuterol Neb 1.25 MG/3 ML IH SCH ×4 (03:36→21:40)
[2019-01-13 05:06] LABS: Hematocrit 37.5 % (35.3-44.9); Hemoglobin 11.2 g/dL (11.5-15.4); Mean Corpuscular HGB Conc 29.9 g/dL (31.6-35.5); Mean Corpuscular Hemoglobin 30.8 pg (28.0-33.3); Mean Platelet Volume 10.4 fL (9.4-12.4); Platelet Count 141 K/mcL (140-400); Red Blood Count 3.64 M/mcL (3.82-4.97); Red Cell Distribution Width 13.3 % (11.5-14.5); White Blood Count 4.4 K/mcL (4.3-11.1)
[2019-01-13] MEDS: *HR* Heparin 5,000 UNIT/ML VIAL SQ SCH ×3 (05:14→20:12)
[2019-01-13 05:26] LABS: Calcium 9.4 mg/dL (8.6-10.3); Potassium 4.3 mEq/L (3.5-5.1)
[2019-01-13] MEDS: traMADol 50 MG TABLET PO PRN ×2 (05:59→16:47)
[2019-01-13] MEDS: *HR* OxyCODONE Immed Rel 5 MG TABLET PO PRN ×2 (09:05→20:12)
[2019-01-13] MEDS: Anastrozole 1 MG TABLET PO SCH (09:05)
[2019-01-13] MEDS: BuPROPion XL (24 HR) 150 MG TABLET PO SCH (09:05)
[2019-01-13] MEDS: levoFLOXacin 500 MG TABLET PO SCH (09:06)
[2019-01-13] MEDS: Folic Acid 1 MG TABLET PO SCH (09:06)
[2019-01-13] MEDS: Aspirin Enteric Coated 81 MG Tablet PO SCH (09:06)
[2019-01-13] MEDS: Gabapentin 100 MG CAPSULE PO SCH ×2 (09:06→20:12)
[2019-01-13] MEDS: Furosemide 40 MG/4 ML VIAL IVP SCH (09:07)
[2019-01-13] MEDS ORDERED: *HR* OxyCODONE Immed Rel 5 MG TABLET PO ONE (14:13)
[2019-01-13] MEDS ORDERED: Furosemide 40 MG/4 ML VIAL ONE (16:39)
[2019-01-13 16:55] LABS: RBC,Pleural Fluid 0.003 M/mcL
[2019-01-13 17:36] LABS: Albumin 3.9 g/dL (3.5-5.7); Albumin/Globulin Ratio 1.4 (1.1-2.2); Globulin 2.7 g/dL (2.4-3.5); Total Protein 6.6 g/dL (6.4-8.9)
[2019-01-13 17:49] LABS: Appearance of Pleural Fl Clear (Clear)
[2019-01-14] MEDS: *HR* OxyCODONE Immed Rel 5 MG TABLET PO PRN ×2 (03:06→09:28)
[2019-01-14] MEDS: Levalbuterol Neb 1.25 MG/3 ML IH SCH ×2 (03:37→11:01)
[2019-01-14 05:48] LABS: BUN/Creatinine Ratio 20 (6-26); Blood Urea Nitrogen 21 mg/dL (8-23); Calcium 9.4 mg/dL (8.6-10.3); Carbon Dioxide 38 mEq/L (23-29); Chloride 95 mEq/L (98-107); Glucose 86 mg/dL (70-105); Osmolality,Calculated 292 (280-300); Potassium 4.2 mEq/L (3.5-5.1); Sodium 140 mEq/L (136-145); eGFR For African Americans > 60 (> 60); eGFR For Non-African Americans 52 (> 60)
[2019-01-14] MEDS: *HR* Heparin 5,000 UNIT/ML VIAL SQ SCH (06:09)
[2019-01-14] MEDS: traMADol 50 MG TABLET PO PRN (06:14)
[2019-01-14] MEDS ORDERED: Furosemide 40 MG/4 ML VIAL IVP SCH (09:00)
[2019-01-14] MEDS: BuPROPion XL (24 HR) 150 MG TABLET PO SCH (09:28)
[2019-01-14] MEDS: Aspirin Enteric Coated 81 MG Tablet PO SCH (09:29)
[2019-01-14] MEDS: Folic Acid 1 MG TABLET PO SCH (09:29)
[2019-01-14] MEDS: Gabapentin 100 MG CAPSULE PO SCH (09:29)
[2019-01-14] MEDS: levoFLOXacin 500 MG TABLET PO SCH (09:29)
[2019-01-14] MEDS: Anastrozole 1 MG TABLET PO SCH (09:29)
[2019-01-14] MEDS ORDERED: FLU Vac QV 19-20 (6Month+)/PF 0.5 ML SYRINGE IM ONE (11:01)
[2019-01-14 15:25] VITALS: BP 119/80
[2019-01-15 12:24] LABS: Fluid Source for Bilirubin PLEURAL FLUID; Fluid Source for CEA PLEURAL FLUID
[2019-01-16 04:37] LABS: Fluid Source for Albumin PLEURAL
== END 2019-01-14 16:24 | disposition home or self-care (01) | DRG 291 ==
LOC: EMEROOARM 15:15 → 3BNU 15:15
PROVIDERS: ADMIT Internal Medicine; ATTEND Internal Medicine

== ENCOUNTER 2019-01-27 13:44 | Inpatient (IN) ==
[2019-01-27 14:42] LABS: Basophils % 0.3 %; Eosinophils # 0.2 K/mcL (0.0-0.6); Hematocrit 42.2 % (35.3-44.9); Hemoglobin 13.2 g/dL (11.5-15.4); Immature Granulocytes % 0.3 % (0-4); Lymphocytes # 0.6 K/mcL (0.6-4.6); Lymphocytes % 10.3 %; Mean Corpuscular HGB Conc 31.3 g/dL (31.6-35.5); Mean Corpuscular Hemoglobin 30.2 pg (28.0-33.3); Mean Platelet Volume 9.8 fL (9.4-12.4); Monocytes # 0.4 K/mcL (0.0-1.3); Monocytes % 6.1 %; Neutrophils # 4.7 K/mcL (1.6-8.9); Platelet Count 246 K/mcL (140-400); Red Blood Count 4.37 M/mcL (3.82-4.97); Red Cell Distribution Width 13.8 % (11.5-14.5); White Blood Count 5.9 K/mcL (4.3-11.1)
[2019-01-27 14:43] LABS: Mean Corpuscular Volume 96.6 fL (83.0-100.0)
[2019-01-27 15:16] LABS: Alanine Aminotransferase 22 Units/L (7-52); Albumin 4.5 g/dL (3.5-5.7); Albumin/Globulin Ratio 1.6 (1.1-2.2); Alkaline Phosphatase 97 Units/L (34-104); Aspartate Amino Transferase 25 Units/L (13-39); BUN/Creatinine Ratio 25 (6-26); Bilirubin,Total 0.5 mg/dL (0.3-1.0); Blood Urea Nitrogen 25 mg/dL (8-23); Calcium 9.2 mg/dL (8.6-10.3); Carbon Dioxide 32 mEq/L (23-29); Chloride 100 mEq/L (98-107); Globulin 2.9 g/dL (2.4-3.5); Glucose 97 mg/dL (70-105); Lipase 6 Units/L (11-82); Osmolality,Calculated 292 (280-300); Potassium 4.3 mEq/L (3.5-5.1); Sodium 139 mEq/L (136-145); Total Protein 7.4 g/dL (6.4-8.9); Troponin I < 0.03 ng/mL (< 0.04); eGFR For African Americans > 60 (> 60); eGFR For Non-African Americans 54 (> 60)
[2019-01-27] MEDS ORDERED: Furosemide 40 MG/4 ML VIAL IVP ONE ×2 (15:28→16:38)
[2019-01-27] MEDS ORDERED: Naloxone 0.4 MG/ML INJ IVP PRN (17:52)
[2019-01-27] MEDS ORDERED: Ipratropium/Albuterol Neb 3 ML IH PRN (17:55)
[2019-01-27] MEDS: *HR* Heparin 5,000 UNIT/ML VIAL SQ SCH (21:27)
[2019-01-27] MEDS ORDERED: *HR* OxyCODONE/APAP 5/325 TABLET PO ONE (21:46)
[2019-01-28] MEDS: *HR* Heparin 5,000 UNIT/ML VIAL SQ SCH ×2 (05:11→18:22)
[2019-01-28] MEDS ORDERED: *HR* OxyCODONE/APAP 5/325 TABLET PO ONE (05:22)
[2019-01-28 07:13] LABS: BUN/Creatinine Ratio 27 (6-26); Blood Urea Nitrogen 25 mg/dL (8-23); Calcium 8.6 mg/dL (8.6-10.3); Carbon Dioxide 32 mEq/L (23-29); Chloride 101 mEq/L (98-107); Glucose 81 mg/dL (70-105); Osmolality,Calculated 295 (280-300); Potassium 4.1 mEq/L (3.5-5.1); Sodium 141 mEq/L (136-145); eGFR For African Americans > 60 (> 60); eGFR For Non-African Americans 58 (> 60)
[2019-01-28] MEDS ORDERED: Furosemide 20 MG/2 ML VIAL IVP SCH (08:00)
[2019-01-28 08:26] LABS: Basophils % 0.7 %; Eosinophils # 0.2 K/mcL (0.0-0.6); Eosinophils % 4.8 %; Hematocrit 40.2 % (35.3-44.9); Hemoglobin 12.6 g/dL (11.5-15.4); Immature Granulocytes % 0.2 % (0-4); Lymphocytes # 0.6 K/mcL (0.6-4.6); Lymphocytes % 14.5 %; Mean Corpuscular HGB Conc 31.3 g/dL (31.6-35.5); Mean Corpuscular Hemoglobin 30.9 pg (28.0-33.3); Mean Corpuscular Volume 98.5 fL (83.0-100.0); Mean Platelet Volume 10.2 fL (9.4-12.4); Monocytes # 0.4 K/mcL (0.0-1.3); Monocytes % 9.7 %; Neutrophils # 3.1 K/mcL (1.6-8.9); Platelet Count 195 K/mcL (140-400); Red Blood Count 4.08 M/mcL (3.82-4.97); Red Cell Distribution Width 13.8 % (11.5-14.5); Segmented Neutrophils % 70.1 %; White Blood Count 4.4 K/mcL (4.3-11.1)
[2019-01-28] MEDS ORDERED: traZODone 50 MG TABLET PO PRN (09:53)
[2019-01-28] MEDS: Aspirin Enteric Coated 81 MG Tablet PO SCH (11:32)
[2019-01-28] MEDS: *HR* OxyCODONE/APAP 5/325 TABLET PO PRN ×2 (13:46→22:18)
[2019-01-28] MEDS: Furosemide 40 MG/4 ML VIAL IVP SCH (18:21)
[2019-01-28] MEDS: carvediloL 6.25 MG TABLET PO SCH (18:22)
[2019-01-28] MEDS: Gabapentin 100 MG CAPSULE PO SCH (20:29)
[2019-01-29 05:06] LABS: Basophils % 0.4 %; Eosinophils # 0.2 K/mcL (0.0-0.6); Eosinophils % 4.6 %; Hematocrit 38.8 % (35.3-44.9); Hemoglobin 12.1 g/dL (11.5-15.4); Immature Granulocytes % 0.4 % (0-4); Lymphocytes # 0.6 K/mcL (0.6-4.6); Lymphocytes % 12.9 %; Mean Corpuscular HGB Conc 31.2 g/dL (31.6-35.5); Mean Corpuscular Hemoglobin 31.3 pg (28.0-33.3); Mean Corpuscular Volume 100.3 fL (83.0-100.0); Mean Platelet Volume 9.8 fL (9.4-12.4); Monocytes # 0.3 K/mcL (0.0-1.3); Monocytes % 6.8 %; Neutrophils # 3.4 K/mcL (1.6-8.9); Platelet Count 201 K/mcL (140-400); Red Blood Count 3.87 M/mcL (3.82-4.97); Red Cell Distribution Width 13.7 % (11.5-14.5); Segmented Neutrophils % 74.9 %; White Blood Count 4.6 K/mcL (4.3-11.1)
[2019-01-29 05:33] LABS: BUN/Creatinine Ratio 27 (6-26); Blood Urea Nitrogen 28 mg/dL (8-23); Calcium 8.7 mg/dL (8.6-10.3); Carbon Dioxide 32 mEq/L (23-29); Chloride 102 mEq/L (98-107); Glucose 146 mg/dL (70-105); Osmolality,Calculated 300 (280-300); Potassium 4.1 mEq/L (3.5-5.1); Sodium 141 mEq/L (136-145); eGFR For African Americans > 60 (> 60); eGFR For Non-African Americans 52 (> 60)
[2019-01-29] MEDS: *HR* OxyCODONE/APAP 5/325 TABLET PO PRN ×2 (06:20→20:04)
[2019-01-29] MEDS: *HR* Heparin 5,000 UNIT/ML VIAL SQ SCH ×2 (06:21→17:36)
[2019-01-29] MEDS: Gabapentin 100 MG CAPSULE PO SCH ×2 (10:39→20:04)
[2019-01-29] MEDS: BuPROPion XL (24 HR) 150 MG TABLET PO SCH (10:39)
[2019-01-29] MEDS: Folic Acid 1 MG TABLET PO SCH (10:39)
[2019-01-29] MEDS: Isosorbide MONOnitrate (24 HR) 30 MG TAB.ER.24H PO SCH (10:39)
[2019-01-29] MEDS: Anastrozole 1 MG TABLET PO SCH (10:39)
[2019-01-29] MEDS: Aspirin Enteric Coated 81 MG Tablet PO SCH (10:39)
[2019-01-29] MEDS: Furosemide 40 MG/4 ML VIAL IVP SCH ×2 (10:40→17:06)
[2019-01-29] MEDS: carvediloL 6.25 MG TABLET PO SCH ×2 (10:40→17:05)
[2019-01-29] MEDS: Spironolactone 25 MG TABLET PO SCH (14:35)
[2019-01-29] MEDS ORDERED: Furosemide 20 MG/2 ML VIAL IVP ONE ×2 (17:03)
[2019-01-30] MEDS: *HR* OxyCODONE/APAP 5/325 TABLET PO PRN ×2 (04:06→15:37)
[2019-01-30] MEDS: *HR* Heparin 5,000 UNIT/ML VIAL SQ SCH ×2 (05:29→17:37)
[2019-01-30 05:41] LABS: Hematocrit 39.7 % (35.3-44.9); Mean Corpuscular HGB Conc 30.2 g/dL (31.6-35.5); Mean Corpuscular Hemoglobin 29.8 pg (28.0-33.3); Mean Corpuscular Volume 98.5 fL (83.0-100.0); Mean Platelet Volume 9.9 fL (9.4-12.4); Platelet Count 219 K/mcL (140-400); Red Blood Count 4.03 M/mcL (3.82-4.97); Red Cell Distribution Width 13.7 % (11.5-14.5); White Blood Count 5.4 K/mcL (4.3-11.1)
[2019-01-30 05:58] LABS: Calcium 9.2 mg/dL (8.6-10.3); Potassium 4.6 mEq/L (3.5-5.1)
[2019-01-30] MEDS: Anastrozole 1 MG TABLET PO SCH (08:32)
[2019-01-30] MEDS: carvediloL 6.25 MG TABLET PO SCH ×2 (08:32→15:37)
[2019-01-30] MEDS: Gabapentin 100 MG CAPSULE PO SCH ×2 (08:33→20:37)
[2019-01-30] MEDS: Folic Acid 1 MG TABLET PO SCH (08:33)
[2019-01-30] MEDS: Spironolactone 25 MG TABLET PO SCH (08:33)
[2019-01-30] MEDS: BuPROPion XL (24 HR) 150 MG TABLET PO SCH (08:34)
[2019-01-30] MEDS: Isosorbide MONOnitrate (24 HR) 30 MG TAB.ER.24H PO SCH (08:34)
[2019-01-30] MEDS: Aspirin Enteric Coated 81 MG Tablet PO SCH (08:35)
[2019-01-30] MEDS: Furosemide 40 MG/4 ML VIAL IVP SCH (08:36)
[2019-01-30] MEDS: Furosemide 40 MG TABLET PO SCH ×2 (15:37→17:37)
[2019-01-31] MEDS: *HR* OxyCODONE/APAP 5/325 TABLET PO PRN ×2 (00:25→08:54)
[2019-01-31 00:49] LABS: Hematocrit 42.1 % (35.3-44.9); Mean Corpuscular HGB Conc 30.9 g/dL (31.6-35.5); Mean Corpuscular Hemoglobin 30.6 pg (28.0-33.3); Mean Corpuscular Volume 99.1 fL (83.0-100.0); Mean Platelet Volume 9.6 fL (9.4-12.4); Platelet Count 202 K/mcL (140-400); Red Blood Count 4.25 M/mcL (3.82-4.97); Red Cell Distribution Width 13.4 % (11.5-14.5)
[2019-01-31 01:10] LABS: Calcium 9.4 mg/dL (8.6-10.3); Potassium 4.5 mEq/L (3.5-5.1)
[2019-01-31] MEDS: *HR* Heparin 5,000 UNIT/ML VIAL SQ SCH (05:15)
[2019-01-31] MEDS: BuPROPion XL (24 HR) 150 MG TABLET PO SCH (08:51)
[2019-01-31] MEDS: Isosorbide MONOnitrate (24 HR) 30 MG TAB.ER.24H PO SCH (08:51)
[2019-01-31] MEDS: Folic Acid 1 MG TABLET PO SCH (08:52)
[2019-01-31] MEDS: Spironolactone 25 MG TABLET PO SCH (08:52)
[2019-01-31] MEDS: carvediloL 6.25 MG TABLET PO SCH (08:53)
[2019-01-31] MEDS: Anastrozole 1 MG TABLET PO SCH (08:53)
[2019-01-31] MEDS: Aspirin Enteric Coated 81 MG Tablet PO SCH (08:54)
[2019-01-31] MEDS: Gabapentin 100 MG CAPSULE PO SCH (08:54)
[2019-01-31] MEDS: Furosemide 40 MG TABLET PO SCH (08:54)
[2019-01-31 11:22] VITALS: BP 119/78
== END 2019-01-31 16:22 | disposition home health service (06) | DRG 293 ==
LOC: EMEROOARM 13:44 → 3BNU 13:44
PROVIDERS: ADMIT Internal Medicine; ATTEND Internal Medicine

== ENCOUNTER 2019-04-04 20:00 | Inpatient (IN) ==
[2019-04-04] MEDS ORDERED: Furosemide 40 MG in 0.9 % Sodium Chloride 50 ML IV ONE (21:19)
[2019-04-04] MEDS ORDERED: Ipratropium/Albuterol Neb 3 ML IH ONE (21:19)
[2019-04-04 21:22] LABS: Basophils % 0.4 %; Eosinophils # 0.1 K/mcL (0.0-0.6); Eosinophils % 2.9 %; Hematocrit 38.2 % (35.3-44.9); Hemoglobin 12.1 g/dL (11.5-15.4); Immature Granulocytes % 0.7 % (0-4); Lymphocytes # 0.3 K/mcL (0.6-4.6); Lymphocytes % 7.5 %; Mean Corpuscular HGB Conc 31.7 g/dL (31.6-35.5); Mean Corpuscular Volume 97.9 fL (83.0-100.0); Monocytes # 0.4 K/mcL (0.0-1.3); Monocytes % 8.4 %; Neutrophils # 3.6 K/mcL (1.6-8.9); Platelet Count 165 K/mcL (140-400); Red Cell Distribution Width 13.6 % (11.5-14.5); Segmented Neutrophils % 80.1 %; White Blood Count 4.5 K/mcL (4.3-11.1)
[2019-04-04] MEDS ORDERED: Morphine Sulfate Immed Rel 15 MG TABLET PO STA (21:29)
[2019-04-04 21:42] LABS: BUN/Creatinine Ratio 16 (6-26); Blood Urea Nitrogen 10 mg/dL (8-23); Calcium 9.1 mg/dL (8.6-10.3); Carbon Dioxide 32 mEq/L (23-29); Chloride 99 mEq/L (98-107); Glucose 88 mg/dL (70-105); Osmolality,Calculated 284 (280-300); Potassium 4.2 mEq/L (3.5-5.1); Sodium 138 mEq/L (136-145); Troponin I < 0.03 ng/mL (< 0.04); eGFR For African Americans > 60 (> 60); eGFR For Non-African Americans > 60 (> 60)
[2019-04-04 21:47] LABS: VBG HCO3 34 mEq/L (21-27); VBG PCO2 59 mmHg (41-51); VBG PH 7.36 pH Units (7.32-7.42); VBG PO2 111 mmHg (25-50)
[2019-04-05] MEDS ORDERED: Naloxone 0.4 MG/ML INJ IVP PRN (03:33)
[2019-04-05] MEDS ORDERED: Albuterol 2.5 MG/3 ML NEBULIZER IH PRN (03:34)
[2019-04-05] MEDS: Ipratropium/Albuterol Neb 3 ML IH SCH ×4 (04:01→21:28)
[2019-04-05] MEDS: *HR* Heparin 5,000 UNIT/ML VIAL SQ SCH ×2 (05:05→17:08)
[2019-04-05] MEDS: *HR* OxyCODONE/APAP 10/325 TABLET PO PRN ×3 (05:05→21:46)
[2019-04-05 05:49] LABS: Hemoglobin 10.8 g/dL (11.5-15.4); Mean Corpuscular Hemoglobin 30.8 pg (28.0-33.3); Mean Corpuscular Volume 102.6 fL (83.0-100.0); Mean Platelet Volume 10.2 fL (9.4-12.4); Platelet Count 145 K/mcL (140-400); Red Blood Count 3.51 M/mcL (3.82-4.97); Red Cell Distribution Width 13.9 % (11.5-14.5); White Blood Count 4.4 K/mcL (4.3-11.1)
[2019-04-05 06:05] LABS: BUN/Creatinine Ratio 14 (6-26); Blood Urea Nitrogen 10 mg/dL (8-23); Carbon Dioxide 37 mEq/L (23-29); Chloride 97 mEq/L (98-107); Glucose 136 mg/dL (70-105); Osmolality,Calculated 295 (280-300); Sodium 142 mEq/L (136-145); Troponin I 0.03 ng/mL (< 0.04); eGFR For African Americans > 60 (> 60); eGFR For Non-African Americans > 60 (> 60)
[2019-04-05] MEDS ORDERED: Furosemide 40 MG/4 ML VIAL IVP SCH (09:00)
[2019-04-05] MEDS: predniSONE 20 MG TABLET PO SCH (09:18)
[2019-04-05] MEDS: Aspirin Enteric Coated 81 MG Tablet PO SCH (09:18)
[2019-04-06] MEDS: Ipratropium/Albuterol Neb 3 ML IH SCH ×4 (03:59→22:27)
[2019-04-06] MEDS: *HR* OxyCODONE/APAP 10/325 TABLET PO PRN ×3 (04:17→18:06)
[2019-04-06 04:56] LABS: Hematocrit 35.4 % (35.3-44.9); Hemoglobin 10.9 g/dL (11.5-15.4); Mean Corpuscular HGB Conc 30.8 g/dL (31.6-35.5); Mean Corpuscular Hemoglobin 31.3 pg (28.0-33.3); Mean Corpuscular Volume 101.7 fL (83.0-100.0); Mean Platelet Volume 9.9 fL (9.4-12.4); Platelet Count 153 K/mcL (140-400); Red Blood Count 3.48 M/mcL (3.82-4.97); Red Cell Distribution Width 13.8 % (11.5-14.5); White Blood Count 4.3 K/mcL (4.3-11.1)
[2019-04-06 05:14] LABS: BUN/Creatinine Ratio 26 (6-26); Blood Urea Nitrogen 20 mg/dL (8-23); Calcium 9.1 mg/dL (8.6-10.3); Carbon Dioxide 35 mEq/L (23-29); Chloride 96 mEq/L (98-107); Glucose 102 mg/dL (70-105); Osmolality,Calculated 295 (280-300); Potassium 4.2 mEq/L (3.5-5.1); Sodium 141 mEq/L (136-145); eGFR For African Americans > 60 (> 60); eGFR For Non-African Americans > 60 (> 60)
[2019-04-06] MEDS: *HR* Heparin 5,000 UNIT/ML VIAL SQ SCH ×2 (05:17→18:06)
[2019-04-06] MEDS ORDERED: Furosemide 40 MG/4 ML VIAL IVP SCH (09:00)
[2019-04-06] MEDS: predniSONE 20 MG TABLET PO SCH (09:18)
[2019-04-06] MEDS: Aspirin Enteric Coated 81 MG Tablet PO SCH (09:18)
[2019-04-06 11:53] LABS: ABG Base Excess 11 mEq/L (-2 to 3); ABG HCO3 39 mEq/L (21-27); ABG Oxygen Saturation 98 % (95-98); ABG PCO2 67 mmHg (35-45); ABG PH 7.37 pH Units (7.32-7.45); ABG PO2 115 mmHg (85-104); ABG TCO2 41 mEq/L (20-26)
[2019-04-06] MEDS ORDERED: Isovue-370 500 ML BOTTLE IVP ONE (16:17)
[2019-04-06 17:26] LABS: % Iron Saturation 5 % (15-50); Iron 23 mcg/dL (50-170); Transferrin 342 mg/dL (203-362)
[2019-04-06 17:30] LABS: Amylase,Pleural Fluid 26 Units/L (No Ref Range); Glucose,Pleural Fluid 126 mg/dL (No Ref Range); LDH,Pleural Fluid 78 Units/L (No Ref Range); Total Protein,Pleural Fluid < 3.0 g/dL
[2019-04-06 17:42] LABS: Ferritin 18 ng/mL (10-120)
[2019-04-06 17:47] LABS: Folate 9.6 ng/mL (3.0-16.0)
[2019-04-06] MEDS: carvediloL 6.25 MG TABLET PO SCH (18:06)
[2019-04-06] MEDS ORDERED: *HR* LORazepam 2 MG/ML VIAL IVP ONE (18:49)
[2019-04-06] MEDS: traZODone 50 MG TABLET PO PRN (19:56)
[2019-04-06] MEDS: Gabapentin 100 MG CAPSULE PO SCH (19:56)
[2019-04-06 20:33] LABS: RBC,Pleural Fluid 0.007 M/mcL
[2019-04-06 20:47] LABS: Appearance of Pleural Fl Cloudy (Clear)
[2019-04-06 20:49] LABS: Eosinophils,Pleural Fluid 0 %; Lymphocytes,Pleural Fluid 76 %; Monocytes,Pleural Fluid 1 %
[2019-04-06 20:50] LABS: Basophils,Pleural Fluid 0 %
[2019-04-07] MEDS: *HR* OxyCODONE/APAP 10/325 TABLET PO PRN ×4 (01:36→22:29)
[2019-04-07] MEDS: Ipratropium/Albuterol Neb 3 ML IH SCH ×4 (03:49→22:48)
[2019-04-07] MEDS: *HR* Heparin 5,000 UNIT/ML VIAL SQ SCH ×2 (05:32→16:58)
[2019-04-07 06:14] LABS: Hematocrit 34.8 % (35.3-44.9); Mean Corpuscular HGB Conc 31.6 g/dL (31.6-35.5); Mean Corpuscular Hemoglobin 31.3 pg (28.0-33.3); Mean Corpuscular Volume 99.1 fL (83.0-100.0); Mean Platelet Volume 10.3 fL (9.4-12.4); Platelet Count 174 K/mcL (140-400); Red Blood Count 3.51 M/mcL (3.82-4.97); Red Cell Distribution Width 14.2 % (11.5-14.5); White Blood Count 4.9 K/mcL (4.3-11.1)
[2019-04-07 06:38] LABS: BUN/Creatinine Ratio 27 (6-26); Blood Urea Nitrogen 25 mg/dL (8-23); Calcium 9.4 mg/dL (8.6-10.3); Carbon Dioxide 37 mEq/L (23-29); Chloride 94 mEq/L (98-107); Glucose 91 mg/dL (70-105); Osmolality,Calculated 292 (280-300); Potassium 4.3 mEq/L (3.5-5.1); Sodium 139 mEq/L (136-145); eGFR For African Americans > 60 (> 60); eGFR For Non-African Americans 59 (> 60)
[2019-04-07] MEDS: predniSONE 20 MG TABLET PO SCH (08:40)
[2019-04-07] MEDS: Folic Acid 1 MG TABLET PO SCH (08:40)
[2019-04-07] MEDS: Aspirin Enteric Coated 81 MG Tablet PO SCH (08:40)
[2019-04-07] MEDS: carvediloL 6.25 MG TABLET PO SCH ×2 (08:40→16:58)
[2019-04-07] MEDS: BuPROPion XL (24 HR) 150 MG TABLET PO SCH (08:40)
[2019-04-07] MEDS: Gabapentin 100 MG CAPSULE PO SCH ×2 (08:40→22:29)
[2019-04-07] MEDS: Cholecalciferol (D-3) 1,000 UNIT (25MCG) TABLET PO SCH (08:40)
[2019-04-07] MEDS: Anastrozole 1 MG TABLET PO SCH (08:40)
[2019-04-07] MEDS: Spironolactone 25 MG TABLET PO SCH (08:41)
[2019-04-07] MEDS ORDERED: Furosemide 40 MG TABLET PO SCH (09:00)
[2019-04-07] MEDS: Cyanocobalamin (B-12) 1,000 MCG/ML VIAL SQ SCH (18:31)
[2019-04-07] MEDS: traZODone 50 MG TABLET PO PRN (23:23)
[2019-04-08 04:19] LABS: Hematocrit 35.6 % (35.3-44.9); Mean Corpuscular HGB Conc 30.9 g/dL (31.6-35.5); Mean Corpuscular Hemoglobin 31.3 pg (28.0-33.3); Mean Corpuscular Volume 101.1 fL (83.0-100.0); Mean Platelet Volume 9.9 fL (9.4-12.4); Platelet Count 162 K/mcL (140-400); Red Blood Count 3.52 M/mcL (3.82-4.97); Red Cell Distribution Width 14.3 % (11.5-14.5); White Blood Count 4.4 K/mcL (4.3-11.1)
[2019-04-08 04:32] LABS: BUN/Creatinine Ratio 29 (6-26); Blood Urea Nitrogen 28 mg/dL (8-23); Calcium 9.2 mg/dL (8.6-10.3); Carbon Dioxide 39 mEq/L (23-29); Chloride 94 mEq/L (98-107); Glucose 118 mg/dL (70-105); Osmolality,Calculated 289 (280-300); Potassium 4.5 mEq/L (3.5-5.1); Sodium 136 mEq/L (136-145); eGFR For African Americans > 60 (> 60); eGFR For Non-African Americans 56 (> 60)
[2019-04-08] MEDS: *HR* Heparin 5,000 UNIT/ML VIAL SQ SCH (04:39)
[2019-04-08] MEDS: *HR* OxyCODONE/APAP 10/325 TABLET PO PRN ×2 (04:39→12:47)
[2019-04-08] MEDS: Ipratropium/Albuterol Neb 3 ML IH SCH ×2 (04:49→11:18)
[2019-04-08] MEDS: carvediloL 6.25 MG TABLET PO SCH (08:39)
[2019-04-08] MEDS: Spironolactone 25 MG TABLET PO SCH (08:39)
[2019-04-08] MEDS: Gabapentin 100 MG CAPSULE PO SCH (08:40)
[2019-04-08] MEDS: Cholecalciferol (D-3) 1,000 UNIT (25MCG) TABLET PO SCH (08:40)
[2019-04-08] MEDS: BuPROPion XL (24 HR) 150 MG TABLET PO SCH (08:40)
[2019-04-08] MEDS: Anastrozole 1 MG TABLET PO SCH (08:40)
[2019-04-08] MEDS: predniSONE 20 MG TABLET PO SCH (08:40)
[2019-04-08] MEDS: Folic Acid 1 MG TABLET PO SCH (08:40)
[2019-04-08] MEDS: Aspirin Enteric Coated 81 MG Tablet PO SCH (08:40)
[2019-04-08] MEDS ORDERED: Furosemide 40 MG TABLET PO SCH (09:00)
[2019-04-08 11:23] VITALS: BP 123/74
[2019-04-08] MEDS: Cyanocobalamin (B-12) 1,000 MCG/ML VIAL SQ SCH (12:46)
== END 2019-04-08 15:38 | disposition home or self-care (01) | DRG 292 ==
LOC: 2ANU 20:00 → EMEROOARM 20:00 → SUATTDRO 23:42 → 2ANU 04-05 00:58
PROVIDERS: ADMIT Family Medicine; ATTEND Family Medicine

== ENCOUNTER 2019-05-03 15:00 | Inpatient (IN) ==
[2019-05-03] MEDS ORDERED: Nitroglycerin 0.4 MG TAB.SUBL SL ONE ×2 (15:11→15:28)
[2019-05-03] MEDS ORDERED: *HR* Heparin 5,000 UNIT/ML VIAL ONE (15:15)
[2019-05-03] MEDS ORDERED: 0.9 % Sodium Chloride 1,000 ML ONE (15:16)
[2019-05-03] MEDS ORDERED: *HR* Ticagrelor 90 MG TABLET ONE (15:16)
[2019-05-03] MEDS ORDERED: Furosemide 40 MG/4 ML VIAL IVP ONE (15:26)
[2019-05-03] MEDS ORDERED: Furosemide 40 MG/4 ML VIAL ONE (15:28)
[2019-05-03] MEDS ORDERED: Piperacillin/Tazobactam 3.375 GM in Water for inj. (sterile) 20 ML IVP ONE (15:41)
[2019-05-03] MEDS ORDERED: Azithromycin 500 MG in D5% in Water 250 ML IVPB ONE (15:41)
[2019-05-03 16:18] LABS: Eosinophils % 0.2 %; Hematocrit 40.5 % (35.3-44.9); Hemoglobin 12.3 g/dL (11.5-15.4); Immature Granulocytes % 0.4 % (0-4); Lymphocytes # 0.2 K/mcL (0.6-4.6); Lymphocytes % 4.9 %; Mean Corpuscular HGB Conc 30.4 g/dL (31.6-35.5); Mean Corpuscular Hemoglobin 30.7 pg (28.0-33.3); Mean Platelet Volume 9.9 fL (9.4-12.4); Monocytes # 0.4 K/mcL (0.0-1.3); Monocytes % 9.7 %; Neutrophils # 3.8 K/mcL (1.6-8.9); Platelet Count 142 K/mcL (140-400); Red Blood Count 4.01 M/mcL (3.82-4.97); Red Cell Distribution Width 13.4 % (11.5-14.5); Segmented Neutrophils % 84.8 %; White Blood Count 4.5 K/mcL (4.3-11.1)
[2019-05-03] MEDS ORDERED: Isovue-370 500 ML BOTTLE IVP ONE (16:25)
[2019-05-03 16:40] LABS: BUN/Creatinine Ratio 22 (6-26); Blood Urea Nitrogen 13 mg/dL (8-23); Calcium 9.7 mg/dL (8.6-10.3); Carbon Dioxide 30 mEq/L (23-29); Chloride 98 mEq/L (98-107); Glucose 160 mg/dL (70-105); Osmolality,Calculated 288 (280-300); Potassium 4.1 mEq/L (3.5-5.1); Sodium 137 mEq/L (136-145); Troponin I 0.03 ng/mL (< 0.04); eGFR For African Americans > 60 (> 60); eGFR For Non-African Americans > 60 (> 60)
[2019-05-03 17:05] LABS: Bilirubin,Urine Negative (Negative); Blood,Urine Trace (Negative); Clarity,Urine Clear (Clear); Color,Urine Yellow (Yellow); Glucose,Urine (UA) Normal (Normal); Ketones,Urine Negative (Negative); Leukocyte Esterase,Urine Negative (Negative); Nitrite,Urine Negative (Negative); Protein,Urine 100 mg/dL (Neg-Trace); Specific Gravity,Urine 1.017 (1.010-1.025); Urobilinogen,Urine Normal (Normal)
[2019-05-03 17:09] LABS: Bacteria,Urine None Seen per hpf (None-Few); Hyaline Casts,Urine None Seen per lpf (None-Few); Squamous Epithelial Cell,Urine Many per lpf (None-Few); WBC,Urine 0-3 per hpf (0-3)
[2019-05-03] MEDS ORDERED: Naloxone 0.4 MG/ML INJ IVP PRN (17:15)
[2019-05-03] MEDS ORDERED: Perflutren Lipid Microsphere 1.3 ML in 0.9 % Sodium Chloride 8.7 ML IVP ONE (21:20)
[2019-05-04] MEDS ORDERED: Morphine Sulfate 2 MG/ML SYRINGE IVP ONE (00:12)
[2019-05-04 00:37] LABS: ABG Base Excess 10 mEq/L (-2 to 3); ABG HCO3 40 mEq/L (21-27); ABG Oxygen Saturation 98 % (95-98); ABG PCO2 77 mmHg (35-45); ABG PH 7.32 pH Units (7.32-7.45); ABG PO2 120 mmHg (85-104); ABG TCO2 42 mEq/L (20-26)
[2019-05-04] MEDS: *HR* OxyCODONE/APAP 10/325 TABLET PO PRN ×4 (01:38→19:19)
[2019-05-04] MEDS: traZODone 50 MG TABLET PO PRN ×2 (01:38→19:19)
[2019-05-04 01:51] LABS: ABG Base Excess 8 mEq/L (-2 to 3); ABG HCO3 37 mEq/L (21-27); ABG Oxygen Saturation 89 % (95-98); ABG PCO2 75 mmHg (35-45); ABG PO2 65 mmHg (85-104); ABG TCO2 40 mEq/L (20-26)
[2019-05-04 02:00] LABS: Adenovirus Not Detected (Not Detect); Coronavirus 229E Not Detected (Not Detect); Coronavirus HKU1 Not Detected (Not Detect); Coronavirus NL63 Not Detected (Not Detect); Coronavirus OC43 Not Detected (Not Detect); Human Metapneumovirus DETECTED (Not Detect)
[2019-05-04 02:01] LABS: Bordetella Pertussis Not Detected (Not Detect); Chlamydophila pneumoniae Not Detected (Not Detect); Human Rhinovirus/Enterovirus Not Detected (Not Detect); Influenza A Subtype 2009 H1 Not Detected (Not Detect); Influenza B Not Detected (Not Detect); Mycoplasma pneumoniae Not Detected (Not Detect); Parainfluenza Virus 1 Not Detected (Not Detect); Parainfluenza Virus 2 Not Detected (Not Detect); Parainfluenza Virus 3 Not Detected (Not Detect); Parainfluenza Virus 4 Not Detected (Not Detect); Respiratory Syncytial Virus Not Detected (Not Detect)
[2019-05-04] MEDS: Dexmedetomidine HCl 400 MCG/100 ML MLS IVC SCH ×2 (02:53→21:09)
[2019-05-04 04:26] LABS: ABG Base Excess 10 mEq/L (-2 to 3); ABG HCO3 37 mEq/L (21-27); ABG Oxygen Saturation 93 % (95-98); ABG PCO2 68 mmHg (35-45); ABG PH 7.35 pH Units (7.32-7.45); ABG PO2 72 mmHg (85-104); ABG TCO2 39 mEq/L (20-26)
[2019-05-04 04:34] LABS: Basophils % 0.3 %; Eosinophils % 0.3 %; Red Cell Distribution Width 13.4 % (11.5-14.5)
[2019-05-04 04:36] LABS: Hematocrit 32.4 % (35.3-44.9); Hemoglobin 10.2 g/dL (11.5-15.4); Immature Granulocytes % 1.7 % (0-4); Immature Platelets 3.4 % (1.1-6.1); Lymphocytes # 0.3 K/mcL (0.6-4.6); Lymphocytes % 7.3 %; Mean Corpuscular HGB Conc 31.5 g/dL (31.6-35.5); Mean Corpuscular Hemoglobin 31.5 pg (28.0-33.3); Monocytes # 0.5 K/mcL (0.0-1.3); Monocytes % 14.6 %; Neutrophils # 2.7 K/mcL (1.6-8.9); Red Blood Count 3.24 M/mcL (3.82-4.97); Segmented Neutrophils % 75.8 %; White Blood Count 3.6 K/mcL (4.3-11.1)
[2019-05-04 05:06] LABS: BUN/Creatinine Ratio 22 (6-26); Blood Urea Nitrogen 15 mg/dL (8-23); Calcium 8.4 mg/dL (8.6-10.3); Carbon Dioxide 29 mEq/L (23-29); Chloride 101 mEq/L (98-107); Chol/HDL Ratio 1.8 (0-4.9); Cholesterol 123 mg/dL (< 200); Glucose 111 mg/dL (70-105); HDL Cholesterol 70 mg/dL (40-59); LDL Cholesterol,Calculated 45 mg/dL (0-99); Osmolality,Calculated 290 (280-300); Platelet Count 94 K/mcL (140-400); Potassium 4.5 mEq/L (3.5-5.1); Sodium 139 mEq/L (136-145); Triglycerides 39 mg/dL (< 150); eGFR For African Americans > 60 (> 60); eGFR For Non-African Americans > 60 (> 60)
[2019-05-04 05:08] LABS: Platelet Estimate Decreased (Normal)
[2019-05-04] MEDS: Aspirin Enteric Coated 81 MG Tablet PO SCH (08:32)
[2019-05-04] MEDS: Cholecalciferol (D-3) 1,000 UNIT (25MCG) TABLET PO SCH (08:32)
[2019-05-04] MEDS: BuPROPion XL (24 HR) 150 MG TABLET PO SCH (08:32)
[2019-05-04] MEDS: carvediloL 6.25 MG TABLET PO SCH ×2 (08:32→17:33)
[2019-05-04] MEDS: Anastrozole 1 MG TABLET PO SCH (08:33)
[2019-05-04] MEDS: Folic Acid 1 MG TABLET PO SCH (08:33)
[2019-05-04] MEDS: Cyanocobalamin (B-12) 1,000 MCG TABLET PO SCH (08:33)
[2019-05-04] MEDS: Furosemide 40 MG/4 ML VIAL IVP SCH ×2 (08:34→19:19)
[2019-05-04] MEDS: Ipratropium/Albuterol Neb 3 ML IH SCH ×4 (11:01→23:42)
[2019-05-04 14:28] LABS: Lactate Dehydrogenase 166 Units/L (140-271); Total Protein 6.1 g/dL (6.4-8.9)
[2019-05-04] MEDS: *HR* Heparin 5,000 UNIT/ML VIAL SQ SCH (17:35)
[2019-05-04] MEDS: Piperacillin/Tazobactam 3.375 GM in 0.9 % Sodium Chloride Mini Bag 100 ML IVPB SCH ×2 (17:35→23:33)
[2019-05-04] MEDS: MethylPREDNISolone 40 MG/ML VIAL IVP SCH ×2 (17:36→23:33)
[2019-05-04 17:45] LABS: RBC,Pleural Fluid 0.006 M/mcL
[2019-05-04 19:52] LABS: Basophils,Pleural Fluid 0 %; Eosinophils,Pleural Fluid 0 %
[2019-05-04 19:53] LABS: Appearance of Pleural Fl Cloudy (Clear)
[2019-05-05] MEDS: *HR* OxyCODONE/APAP 10/325 TABLET PO PRN ×4 (01:12→22:12)
[2019-05-05] MEDS: Ipratropium/Albuterol Neb 3 ML IH SCH ×6 (03:20→23:53)
[2019-05-05 04:33] LABS: Hematocrit 33.7 % (35.3-44.9); Hemoglobin 10.1 g/dL (11.5-15.4); Mean Corpuscular Hemoglobin 30.8 pg (28.0-33.3); Mean Corpuscular Volume 102.7 fL (83.0-100.0); Mean Platelet Volume 10.1 fL (9.4-12.4); Platelet Count 146 K/mcL (140-400); Red Blood Count 3.28 M/mcL (3.82-4.97); Red Cell Distribution Width 13.2 % (11.5-14.5); White Blood Count 3.1 K/mcL (4.3-11.1)
[2019-05-05 04:51] LABS: BUN/Creatinine Ratio 24 (6-26); Blood Urea Nitrogen 20 mg/dL (8-23); Calcium 9.1 mg/dL (8.6-10.3); Carbon Dioxide 38 mEq/L (23-29); Chloride 97 mEq/L (98-107); Glucose 150 mg/dL (70-105); Osmolality,Calculated 293 (280-300); Sodium 139 mEq/L (136-145); eGFR For African Americans > 60 (> 60); eGFR For Non-African Americans > 60 (> 60)
[2019-05-05] MEDS: *HR* Heparin 5,000 UNIT/ML VIAL SQ SCH ×2 (05:38→17:10)
[2019-05-05] MEDS: MethylPREDNISolone 40 MG/ML VIAL IVP SCH (07:41)
[2019-05-05] MEDS: Piperacillin/Tazobactam 3.375 GM in 0.9 % Sodium Chloride Mini Bag 100 ML IVPB SCH (07:42)
[2019-05-05] MEDS: Cholecalciferol (D-3) 1,000 UNIT (25MCG) TABLET PO SCH (07:44)
[2019-05-05] MEDS: Furosemide 40 MG/4 ML VIAL IVP SCH ×2 (07:44→22:11)
[2019-05-05] MEDS: BuPROPion XL (24 HR) 150 MG TABLET PO SCH (07:44)
[2019-05-05] MEDS: Anastrozole 1 MG TABLET PO SCH (07:45)
[2019-05-05] MEDS: Folic Acid 1 MG TABLET PO SCH (07:45)
[2019-05-05] MEDS: carvediloL 6.25 MG TABLET PO SCH ×2 (07:45→17:10)
[2019-05-05] MEDS: Cyanocobalamin (B-12) 1,000 MCG TABLET PO SCH (07:46)
[2019-05-05] MEDS: Aspirin Enteric Coated 81 MG Tablet PO SCH (07:46)
[2019-05-05] MEDS ORDERED: Naloxone 0.4 MG/ML INJ IVP PRN (10:17)
[2019-05-05] MEDS ORDERED: Piperacillin/Tazobactam 3.375 GM in 0.9 % Sodium Chloride Mini Bag 100 ML IVPB SCH (16:00)
[2019-05-05] MEDS: traZODone 50 MG TABLET PO PRN (22:19)
[2019-05-06] MEDS: Ipratropium/Albuterol Neb 3 ML IH SCH ×6 (04:00→23:00)
[2019-05-06] MEDS: *HR* Heparin 5,000 UNIT/ML VIAL SQ SCH ×2 (05:57→18:39)
[2019-05-06] MEDS: *HR* OxyCODONE/APAP 10/325 TABLET PO PRN ×3 (05:57→18:39)
[2019-05-06 06:33] LABS: Hematocrit 35.3 % (35.3-44.9); Hemoglobin 10.7 g/dL (11.5-15.4); Mean Corpuscular HGB Conc 30.3 g/dL (31.6-35.5); Mean Corpuscular Hemoglobin 31.2 pg (28.0-33.3); Mean Corpuscular Volume 102.9 fL (83.0-100.0); Mean Platelet Volume 9.9 fL (9.4-12.4); Platelet Count 162 K/mcL (140-400); Red Blood Count 3.43 M/mcL (3.82-4.97); Red Cell Distribution Width 13.2 % (11.5-14.5); White Blood Count 5.3 K/mcL (4.3-11.1)
[2019-05-06 06:45] LABS: BUN/Creatinine Ratio 27 (6-26); Blood Urea Nitrogen 23 mg/dL (8-23); Calcium 9.2 mg/dL (8.6-10.3); Carbon Dioxide 42 mEq/L (23-29); Chloride 98 mEq/L (98-107); Glucose 109 mg/dL (70-105); Osmolality,Calculated 296 (280-300); Potassium 4.2 mEq/L (3.5-5.1); Sodium 141 mEq/L (136-145); eGFR For African Americans > 60 (> 60); eGFR For Non-African Americans > 60 (> 60)
[2019-05-06] MEDS: BuPROPion XL (24 HR) 150 MG TABLET PO SCH (08:13)
[2019-05-06] MEDS: Aspirin Enteric Coated 81 MG Tablet PO SCH (08:14)
[2019-05-06] MEDS: Folic Acid 1 MG TABLET PO SCH (08:14)
[2019-05-06] MEDS: Cholecalciferol (D-3) 1,000 UNIT (25MCG) TABLET PO SCH (08:14)
[2019-05-06] MEDS: Cyanocobalamin (B-12) 1,000 MCG TABLET PO SCH (08:15)
[2019-05-06] MEDS: Anastrozole 1 MG TABLET PO SCH (08:15)
[2019-05-06] MEDS: carvediloL 6.25 MG TABLET PO SCH ×2 (08:15→17:54)
[2019-05-06] MEDS: Furosemide 40 MG/4 ML VIAL IVP SCH ×2 (08:16→23:08)
[2019-05-06] MEDS ORDERED: MethylPREDNISolone 40 MG/ML VIAL IVP SCH ×2 (09:00)
[2019-05-06] MEDS: lisinopriL 5 MG TABLET PO SCH (15:13)
[2019-05-06] MEDS: traZODone 50 MG TABLET PO PRN (23:08)
[2019-05-07] MEDS: Ipratropium/Albuterol Neb 3 ML IH SCH ×6 (03:38→23:46)
[2019-05-07] MEDS: *HR* OxyCODONE/APAP 10/325 TABLET PO PRN ×3 (04:38→16:16)
[2019-05-07 05:04] LABS: Hematocrit 36.4 % (35.3-44.9); Mean Corpuscular HGB Conc 30.2 g/dL (31.6-35.5); Mean Corpuscular Volume 102.5 fL (83.0-100.0); Mean Platelet Volume 9.4 fL (9.4-12.4); Platelet Count 192 K/mcL (140-400); Red Blood Count 3.55 M/mcL (3.82-4.97); Red Cell Distribution Width 13.1 % (11.5-14.5); White Blood Count 5.4 K/mcL (4.3-11.1)
[2019-05-07] MEDS: *HR* Heparin 5,000 UNIT/ML VIAL SQ SCH ×2 (05:34→17:16)
[2019-05-07 05:35] LABS: BUN/Creatinine Ratio 35 (6-26); Blood Urea Nitrogen 27 mg/dL (8-23); Calcium 9.4 mg/dL (8.6-10.3); Carbon Dioxide 43 mEq/L (23-29); Chloride 96 mEq/L (98-107); Glucose 93 mg/dL (70-105); Osmolality,Calculated 299 (280-300); Potassium 3.8 mEq/L (3.5-5.1); Sodium 142 mEq/L (136-145); eGFR For African Americans > 60 (> 60); eGFR For Non-African Americans > 60 (> 60)
[2019-05-07] MEDS: Folic Acid 1 MG TABLET PO SCH (10:26)
[2019-05-07] MEDS: Anastrozole 1 MG TABLET PO SCH (10:26)
[2019-05-07] MEDS: Aspirin Enteric Coated 81 MG Tablet PO SCH (10:26)
[2019-05-07] MEDS: Cyanocobalamin (B-12) 1,000 MCG TABLET PO SCH (10:27)
[2019-05-07] MEDS: lisinopriL 5 MG TABLET PO SCH (10:27)
[2019-05-07] MEDS: carvediloL 6.25 MG TABLET PO SCH ×2 (10:28→17:16)
[2019-05-07] MEDS: predniSONE 20 MG TABLET PO SCH (10:30)
[2019-05-07] MEDS: BuPROPion XL (24 HR) 150 MG TABLET PO SCH (10:31)
[2019-05-07] MEDS: Furosemide 40 MG/4 ML VIAL IVP SCH (10:31)
[2019-05-07] MEDS: Cholecalciferol (D-3) 1,000 UNIT (25MCG) TABLET PO SCH (10:31)
[2019-05-07] MEDS: Spironolactone 25 MG TABLET PO SCH (14:14)
[2019-05-07] MEDS: Furosemide 40 MG TABLET PO SCH (17:15)
[2019-05-08] MEDS: traZODone 50 MG TABLET PO PRN ×2 (00:44→19:34)
[2019-05-08] MEDS: *HR* OxyCODONE/APAP 10/325 TABLET PO PRN ×3 (00:45→19:33)
[2019-05-08] MEDS: Ipratropium/Albuterol Neb 3 ML IH SCH ×5 (03:12→23:49)
[2019-05-08] MEDS: *HR* Heparin 5,000 UNIT/ML VIAL SQ SCH ×2 (05:56→17:54)
[2019-05-08 06:50] LABS: Hemoglobin 11.6 g/dL (11.5-15.4); Mean Corpuscular HGB Conc 29.7 g/dL (31.6-35.5); Mean Corpuscular Hemoglobin 30.2 pg (28.0-33.3); Mean Corpuscular Volume 101.6 fL (83.0-100.0); Mean Platelet Volume 9.5 fL (9.4-12.4); Platelet Count 224 K/mcL (140-400); Red Blood Count 3.84 M/mcL (3.82-4.97); Red Cell Distribution Width 12.9 % (11.5-14.5); White Blood Count 5.2 K/mcL (4.3-11.1)
[2019-05-08 07:12] LABS: BUN/Creatinine Ratio 36 (6-26); Blood Urea Nitrogen 28 mg/dL (8-23); Calcium 9.1 mg/dL (8.6-10.3); Carbon Dioxide 45 mEq/L (23-29); Chloride 94 mEq/L (98-107); Glucose 98 mg/dL (70-105); Osmolality,Calculated 301 (280-300); Potassium 3.6 mEq/L (3.5-5.1); Sodium 143 mEq/L (136-145); eGFR For African Americans > 60 (> 60); eGFR For Non-African Americans > 60 (> 60)
[2019-05-08] MEDS ORDERED: BuPROPion XL (24 HR) 150 MG TABLET PO ONE (12:33)
[2019-05-08] MEDS ORDERED: *HR* OxyCODONE/APAP 10/325 TABLET ONE (12:33)
[2019-05-08] MEDS ORDERED: Aspirin Enteric Coated 81 MG Tablet PO ONE (12:33)
[2019-05-08] MEDS ORDERED: predniSONE 20 MG TABLET ONE (12:33)
[2019-05-08] MEDS ORDERED: carvediloL 6.25 MG TABLET ONE (12:33)
[2019-05-08] MEDS ORDERED: Cholecalciferol (D-3) 1,000 UNIT (25MCG) TABLET PO ONE (12:33)
[2019-05-08] MEDS ORDERED: Anastrozole 1 MG TABLET PO ONE (12:33)
[2019-05-08] MEDS ORDERED: Folic Acid 1 MG TABLET ONE (12:33)
[2019-05-08] MEDS ORDERED: Cyanocobalamin (B-12) 1,000 MCG TABLET ONE (12:33)
[2019-05-08] MEDS ORDERED: Ipratropium/Albuterol Neb 3 ML ONE (12:33)
[2019-05-08] MEDS ORDERED: lisinopriL 5 MG TABLET ONE (12:33)
[2019-05-08] MEDS ORDERED: Furosemide 40 MG TABLET PO ONE (12:33)
[2019-05-08] MEDS ORDERED: Spironolactone 25 MG TABLET ONE (12:33)
[2019-05-08] MEDS: Anastrozole 1 MG TABLET PO SCH (17:49)
[2019-05-08] MEDS: carvediloL 6.25 MG TABLET PO SCH ×2 (17:49→17:53)
[2019-05-08] MEDS: Spironolactone 25 MG TABLET PO SCH (17:49)
[2019-05-08] MEDS: Furosemide 40 MG TABLET PO SCH ×2 (17:49→17:54)
[2019-05-08] MEDS: Aspirin Enteric Coated 81 MG Tablet PO SCH (17:50)
[2019-05-08] MEDS: Folic Acid 1 MG TABLET PO SCH (17:51)
[2019-05-08] MEDS: Cyanocobalamin (B-12) 1,000 MCG TABLET PO SCH (17:51)
[2019-05-08] MEDS: predniSONE 20 MG TABLET PO SCH (17:51)
[2019-05-08] MEDS: Cholecalciferol (D-3) 1,000 UNIT (25MCG) TABLET PO SCH (17:52)
[2019-05-08] MEDS: lisinopriL 5 MG TABLET PO SCH (17:52)
[2019-05-08] MEDS: BuPROPion XL (24 HR) 150 MG TABLET PO SCH (17:52)
[2019-05-09] MEDS: *HR* OxyCODONE/APAP 10/325 TABLET PO PRN ×4 (01:33→19:40)
[2019-05-09 03:13] LABS: Hematocrit 37.8 % (35.3-44.9); Hemoglobin 11.5 g/dL (11.5-15.4); Mean Corpuscular HGB Conc 30.4 g/dL (31.6-35.5); Mean Corpuscular Hemoglobin 31.1 pg (28.0-33.3); Mean Corpuscular Volume 102.2 fL (83.0-100.0); Mean Platelet Volume 9.3 fL (9.4-12.4); Platelet Count 205 K/mcL (140-400); Red Cell Distribution Width 12.7 % (11.5-14.5); White Blood Count 6.8 K/mcL (4.3-11.1)
[2019-05-09 03:41] LABS: BUN/Creatinine Ratio 28 (6-26); Blood Urea Nitrogen 28 mg/dL (8-23); Calcium 8.8 mg/dL (8.6-10.3); Carbon Dioxide 44 mEq/L (23-29); Chloride 94 mEq/L (98-107); Glucose 123 mg/dL (70-105); Osmolality,Calculated 301 (280-300); Potassium 3.8 mEq/L (3.5-5.1); Sodium 142 mEq/L (136-145); eGFR For African Americans > 60 (> 60); eGFR For Non-African Americans 53 (> 60)
[2019-05-09] MEDS: Ipratropium/Albuterol Neb 3 ML IH SCH ×5 (03:52→20:16)
[2019-05-09] MEDS: *HR* Heparin 5,000 UNIT/ML VIAL SQ SCH ×2 (06:49→18:22)
[2019-05-09] MEDS: lisinopriL 5 MG TABLET PO SCH (11:06)
[2019-05-09] MEDS: carvediloL 6.25 MG TABLET PO SCH ×2 (11:07→18:23)
[2019-05-09] MEDS: Cyanocobalamin (B-12) 1,000 MCG TABLET PO SCH (11:07)
[2019-05-09] MEDS: Cholecalciferol (D-3) 1,000 UNIT (25MCG) TABLET PO SCH (11:07)
[2019-05-09] MEDS: Furosemide 40 MG TABLET PO SCH ×2 (11:07→18:23)
[2019-05-09] MEDS: Anastrozole 1 MG TABLET PO SCH (11:07)
[2019-05-09] MEDS: BuPROPion XL (24 HR) 150 MG TABLET PO SCH (11:07)
[2019-05-09] MEDS: Spironolactone 25 MG TABLET PO SCH (11:07)
[2019-05-09] MEDS: Aspirin Enteric Coated 81 MG Tablet PO SCH (11:08)
[2019-05-09] MEDS: Folic Acid 1 MG TABLET PO SCH (11:08)
[2019-05-09] MEDS: predniSONE 20 MG TABLET PO SCH (11:08)
[2019-05-09] MEDS: traZODone 50 MG TABLET PO PRN (19:43)
[2019-05-10] MEDS: Ipratropium/Albuterol Neb 3 ML IH SCH ×5 (00:12→15:37)
[2019-05-10] MEDS: *HR* OxyCODONE/APAP 10/325 TABLET PO PRN ×3 (01:53→14:58)
[2019-05-10 04:13] LABS: Hematocrit 37.3 % (35.3-44.9); Hemoglobin 11.4 g/dL (11.5-15.4); Mean Corpuscular HGB Conc 30.6 g/dL (31.6-35.5); Mean Corpuscular Hemoglobin 31.1 pg (28.0-33.3); Mean Corpuscular Volume 101.6 fL (83.0-100.0); Mean Platelet Volume 9.3 fL (9.4-12.4); Platelet Count 210 K/mcL (140-400); Red Blood Count 3.67 M/mcL (3.82-4.97); Red Cell Distribution Width 12.8 % (11.5-14.5); White Blood Count 7.7 K/mcL (4.3-11.1)
[2019-05-10 04:34] LABS: BUN/Creatinine Ratio 34 (6-26); Blood Urea Nitrogen 28 mg/dL (8-23); Calcium 9.1 mg/dL (8.6-10.3); Carbon Dioxide > 45 mEq/L (23-29); Chloride 92 mEq/L (98-107); Glucose 93 mg/dL (70-105); Osmolality,Calculated 299 (280-300); Potassium 3.9 mEq/L (3.5-5.1); Sodium 142 mEq/L (136-145); eGFR For African Americans > 60 (> 60); eGFR For Non-African Americans > 60 (> 60)
[2019-05-10 06:28] VITALS: BP 124/72
[2019-05-10] MEDS: *HR* Heparin 5,000 UNIT/ML VIAL SQ SCH (06:39)
[2019-05-10] MEDS: predniSONE 20 MG TABLET PO SCH (08:26)
[2019-05-10] MEDS: Furosemide 40 MG TABLET PO SCH (08:27)
[2019-05-10] MEDS: Anastrozole 1 MG TABLET PO SCH (08:27)
[2019-05-10] MEDS: Aspirin Enteric Coated 81 MG Tablet PO SCH (08:27)
[2019-05-10] MEDS: BuPROPion XL (24 HR) 150 MG TABLET PO SCH (08:27)
[2019-05-10] MEDS: Cholecalciferol (D-3) 1,000 UNIT (25MCG) TABLET PO SCH (08:27)
[2019-05-10] MEDS: Folic Acid 1 MG TABLET PO SCH (08:28)
[2019-05-10] MEDS: Cyanocobalamin (B-12) 1,000 MCG TABLET PO SCH (08:28)
[2019-05-10] MEDS: carvediloL 6.25 MG TABLET PO SCH (08:28)
[2019-05-10] MEDS: lisinopriL 5 MG TABLET PO SCH (08:29)
[2019-05-10] MEDS: Spironolactone 25 MG TABLET PO SCH (08:29)
== END 2019-05-10 16:02 | disposition home health service (06) | DRG 291 ==
LOC: EMEROOARM 15:00 → 2NNU 15:00 → ICNU 05-04 01:09 → SUATTDRO 05-04 13:50 → 2NENU 05-05 19:16
PROVIDERS: ADMIT Internal Medicine; ATTEND Family Medicine

== ENCOUNTER 2019-07-12 20:09 | Observation (INO) ==
[2019-07-12 20:54] LABS: Basophils % 0.2 %; Hematocrit 38.2 % (35.3-44.9); Hemoglobin 12.5 g/dL (11.5-15.4); Immature Granulocytes % 1.7 % (0-4); Lymphocytes # 0.3 K/mcL (0.6-4.6); Lymphocytes % 2.7 %; Mean Corpuscular HGB Conc 32.7 g/dL (31.6-35.5); Mean Corpuscular Hemoglobin 30.6 pg (28.0-33.3); Mean Corpuscular Volume 93.6 fL (83.0-100.0); Mean Platelet Volume 10.2 fL (9.4-12.4); Monocytes # 0.9 K/mcL (0.0-1.3); Monocytes % 8.6 %; Platelet Count 192 K/mcL (140-400); Red Blood Count 4.08 M/mcL (3.82-4.97); Red Cell Distribution Width 13.6 % (11.5-14.5); Segmented Neutrophils % 86.8 %; White Blood Count 10.9 K/mcL (4.3-11.1)
[2019-07-12 20:56] LABS: INR 1.4; Prothrombin Time 16.3 Seconds (9.4-12.1)
[2019-07-12 20:57] LABS: Neutrophils # 9.5 K/mcL (1.6-8.9)
[2019-07-12 20:58] LABS: Activated Partial Thrombo Time 26.8 Seconds (26.0-36.0)
[2019-07-12 21:09] LABS: Platelet Estimate Normal (Normal)
[2019-07-12 21:10] LABS: Large Platelets Present (Not Present)
[2019-07-12 21:17] LABS: Alanine Aminotransferase 111 Units/L (7-52); Albumin 3.3 g/dL (3.5-5.7); Albumin/Globulin Ratio 1.4 (1.1-2.2); Alkaline Phosphatase 98 Units/L (34-104); Aspartate Amino Transferase 150 Units/L (13-39); Bilirubin,Total 1.1 mg/dL (0.3-1.0); Blood Urea Nitrogen > 130 mg/dL (8-23); Calcium 8.1 mg/dL (8.6-10.3); Carbon Dioxide 34 mEq/L (23-29); Chloride 82 mEq/L (98-107); Globulin 2.3 g/dL (2.4-3.5); Glucose 95 mg/dL (70-105); Potassium 3.7 mEq/L (3.5-5.1); Sodium 133 mEq/L (136-145); Total Protein 5.6 g/dL (6.4-8.9); Troponin I 0.09 ng/mL (< 0.04); eGFR For African Americans 19 (> 60); eGFR For Non-African Americans 16 (> 60)
[2019-07-12 21:43] LABS: Bilirubin,Urine Moderate (Negative); Blood,Urine Negative (Negative); Clarity,Urine Cloudy (Clear); Color,Urine Dark Yellow (Yellow); Glucose,Urine (UA) Normal (Normal); Ketones,Urine Trace mg/dL (Negative); Leukocyte Esterase,Urine Trace (Negative); Nitrite,Urine Negative (Negative); Protein,Urine Negative (Neg-Trace); Specific Gravity,Urine 1.019 (1.010-1.025); Urobilinogen,Urine Normal (Normal)
[2019-07-12 21:45] LABS: Bacteria,Urine None Seen per hpf (None-Few); Squamous Epithelial Cell,Urine Many per lpf (None-Few); WBC,Urine 0-3 per hpf (0-3)
[2019-07-12 21:56] LABS: Amorphous Sediment,Urine Few per hpf (Few)
[2019-07-13] MEDS ORDERED: Naloxone 0.4 MG/ML INJ IVP PRN (00:59)
[2019-07-13] MEDS ORDERED: Ondansetron 4 MG/2 ML VIAL IVP PRN (00:59)
[2019-07-13] MEDS ORDERED: *HR* Heparin 5,000 UNIT/ML VIAL IVP ONE (01:49)
[2019-07-13] MEDS ORDERED: *HR* Heparin 5,000 UNIT/ML VIAL IVP PRN ×2 (01:49)
[2019-07-13] MEDS ORDERED: Heparin 25,000 UNIT/250 ML D5W 25,000 UNIT/250 ML IV.SOLN IVC SCH (02:00)
[2019-07-13] MEDS ORDERED: *HR* OxyCODONE Immed Rel 5 MG TABLET PO PRN (02:18)
[2019-07-13 02:19] LABS: Hematocrit 36.5 % (35.3-44.9); Hemoglobin 11.9 g/dL (11.5-15.4); Mean Corpuscular HGB Conc 32.6 g/dL (31.6-35.5); Mean Corpuscular Hemoglobin 30.7 pg (28.0-33.3); Mean Corpuscular Volume 94.3 fL (83.0-100.0); Mean Platelet Volume 9.8 fL (9.4-12.4); Platelet Count 153 K/mcL (140-400); Red Blood Count 3.87 M/mcL (3.82-4.97); Red Cell Distribution Width 13.7 % (11.5-14.5); White Blood Count 10.3 K/mcL (4.3-11.1)
[2019-07-13 02:24] LABS: Heparin anti-factor XA UFH < 0.04 IU/mL (0.30-0.70)
[2019-07-13 02:25] LABS: INR 1.4
[2019-07-13 02:50] LABS: Sodium, Urine 15.1 mEq/L
[2019-07-13 04:23] VITALS: BP 85/56
[2019-07-13 04:29] LABS: ABG Base Excess 6 mEq/L (-2 to 3); ABG HCO3 25 mEq/L (21-27); ABG Oxygen Saturation 100 % (95-98); ABG PCO2 23 mmHg (35-45); ABG PH 7.64 pH Units (7.32-7.45); ABG PO2 183 mmHg (85-104); ABG TCO2 26 mEq/L (20-26)
[2019-07-13] MEDS ORDERED: *HR* LORazepam 2 MG/ML VIAL IVP ONE (04:30)
[2019-07-13] MEDS ORDERED: *HR* LORazepam 2 MG/ML VIAL ONE (04:30)
[2019-07-13] MEDS ORDERED: 0.9 % Sodium Chloride 1,000 ML IVC ONE (05:11)
[2019-07-13] MEDS ORDERED: 0.9 % Sodium Chloride 1,000 ML IVC SCH (05:15)
[2019-07-13] MEDS ORDERED: Piperacillin/Tazobactam 4.5 GM in 0.9 % Sodium Chloride Mini Bag 100 ML IVPB ONE (05:21)
[2019-07-13 05:36] LABS: Blood Urea Nitrogen > 130 mg/dL (8-23); Carbon Dioxide 28 mEq/L (23-29); Chloride 84 mEq/L (98-107); Glucose 74 mg/dL (70-105); Magnesium 2.6 mg/dL (1.6-2.6); Phosphorous 7.2 mg/dL (2.7-4.5); Potassium 3.9 mEq/L (3.5-5.1); Sodium 135 mEq/L (136-145); Troponin I 0.09 ng/mL (< 0.04); eGFR For African Americans 20 (> 60); eGFR For Non-African Americans 16 (> 60)
[2019-07-13] MEDS ORDERED: flumazeniL 0.5 MG/5 ML VIAL IVP ONE (05:48)
[2019-07-13] MEDS ORDERED: Piperacillin/Tazobactam 3.375 GM in 0.9 % Sodium Chloride Mini Bag 100 ML IVPB SCH (06:00)
[2019-07-13 06:36] LABS: Alanine Aminotransferase 106 Units/L (7-52); Albumin 3.3 g/dL (3.5-5.7); Albumin/Globulin Ratio 1.3 (1.1-2.2); Alkaline Phosphatase 119 Units/L (34-104); Aspartate Amino Transferase 131 Units/L (13-39); Bilirubin,Direct 0.7 mg/dL (0.0-0.2); Bilirubin,Indirect 0.7 mg/dL (0.0-1.0); Bilirubin,Total 1.4 mg/dL (0.3-1.0); Globulin 2.5 g/dL (2.4-3.5); Total Protein 5.8 g/dL (6.4-8.9)
[2019-07-13] MEDS ORDERED: *HR* Atropine Sulfate 1 MG/10 ML SYRINGE IV ONE (08:25)
[2019-07-13] MEDS ORDERED: *HR* EPINEPHrine 1 MG/10 ML SYRINGE IVP ONE (08:25)
[2019-07-13 12:13] LABS: Acinetobacter baumannii by PCR Not Detected (Not Detect); Candida albicans by PCR Not Detected (Not Detect); Candida glabrata by PCR Not Detected (Not Detect); Candida krusei by PCR Not Detected (Not Detect); Candida parapsilosis by PCR Not Detected (Not Detect); Candida tropicalis by PCR Not Detected (Not Detect); Enterobacter cloacae Cmplx PCR Not Detected (Not Detect); Enterococcus by PCR Not Detected (Not Detect); Escherichia coli by PCR Not Detected (Not Detect); Klebsiella oxytoca by PCR Not Detected (Not Detect); Klebsiella pneumoniae by PCR DETECTED (Not Detect); Proteus by PCR Not Detected (Not Detect); Pseudomonas aeruginosa by PCR Not Detected (Not Detect); Serratia marcescens by PCR Not Detected (Not Detect); Staphylococcus aureus by PCR Not Detected (Not Detect); Staphylococcus by PCR Not Detected (Not Detect); Streptococcus agalactiae(B)PCR Not Detected (Not Detect); Streptococcus by PCR Not Detected (Not Detect); Streptococcus pneumoniae PCR Not Detected (Not Detect); Streptococcus pyogenes (A) PCR Not Detected (Not Detect); blaKPC Carbapenem-Resist Gene Not Detected (Not Detect)
== END 2019-07-13 08:26 | disposition expired ==
LOC: EMEROOARM 20:09 → 3ANU 20:09 → ICNU 07-13 05:48
PROVIDERS: ADMIT Internal Medicine; ATTEND Internal Medicine